=== PATIENT | male | born 1990 | race Asian ===

== ENCOUNTER 2024-04-08 09:14 | Inpatient (IN) | payer MEDICAID, SELFPAY ==
[2024-04-08 09:16] VITALS: BMI 23.7
[2024-04-08 09:29] VITALS: BP 126/75; PULSE 68; RESP 16; TEMP 36.8; O2SAT 100; BMI 23.7
--- NOTE | 2024-04-08 09:38 | PD.EDRME ---
Rapid Medical Screening Exam RME Arrival date/time: 04/08/24 09:14 33-year-old male presents emergency department complains of nausea vomiting abdominal pain patient reports vomiting for 3 days Chief Complaint: Abdominal Pain Time Seen by Provider: 04/08/24 09:16 Vital signs: Vital Signs Temperature 98.3 F 04/08/24 09:29 Pulse Rate 68 04/08/24 09:29 Respiratory Rate 16 04/08/24 09:29 Blood Pressure 126/75 04/08/24 09:29 Pulse Oximetry (%) 100 04/08/24 09:29 Oxygen Delivery Method Room Air 04/08/24 09:29
[2024-04-08] MEDS: ONDANSETRON ODT 4 MG TABRAP PO (09:49)
[2024-04-08] MEDS: METOCLOPRAMIDE INJ 5 MG/ML VIAL 2 ML 10 MG IM (09:49)
[2024-04-08 10:24] LABS: Basophils % (Auto) 0 % (0-2.5); Eosinophils % (Auto) 0 % (0-10); Hematocrit 43.6 % (41.0-53.0); Hemoglobin 15.7 g/dL (13.5-16.0); Immature Granulocytes % (Auto) 0 % (0-0); Immature Granulocytes Auto 0.03 Thou/mm3 (0.00-0.00); Lymphocytes # (Auto) 2.3 Thou/mm3 (1.0-4.8); Lymphocytes % (Auto) 21 % (10-50); Mean Corpuscular Volume 78 fL (80-100); Monocytes # (Auto) 0.9 Thou/mm3 (0.0-0.8); Monocytes % (Auto) 8 % (0-12); Neutrophils # (Auto) 7.6 Thou/mm3 (1.8-7.7); Neutrophils % (Auto) 70 % (37-80); Nucleated Red Blood Cell % 0 /100 WBC (0); Platelet Count 277 Thou/mm3 (140-440); RDW Standard Deviation 33.4 fL (35.1-43.9); White Blood Count 10.9 Thou/mm3 (3.8-10.6)
[2024-04-08 10:42] LABS: Alanine Aminotransferase 20 U/L (10-49); Albumin, Serum 5.5 gm/dL (3.5-5.0); Albumin/Globulin Ratio 1.8 (1.2-2.2); Alkaline Phosphatase 89 U/L (46-116); Anion Gap 18 (7-16); Aspartate Amino Transferase 23 U/L (0-34); BUN/Creatinine Ratio 14 Ratio (12-20); Bilirubin,Total 1.8 mg/dL (0.3-1.2); Blood Urea Nitrogen 17 mg/dL (9-23); Calcium 10.6 mg/dL (8.3-10.6); Calcium (Corrected) 10.6 mg/dL (8.5-10.1); Carbon Dioxide 21.4 mMol/L (20.0-31.0); Chloride 100 mMol/L (98-107); Creatinine (Component) 1.2 mg/dL (0.6-1.3); Globulin 3.1 gm/dL (2.3-3.5); Glucose 80 mg/dL (74-106); Lipase 51 U/L (12-53); Osmolality,Calculated 278 (275-295); Sodium 139 mMol/L (136-145); Total Protein 8.6 gm/dL (5.7-8.2); eGFR > 60 See Note
[2024-04-08 16:38] VITALS: BP 121/77; PULSE 74; RESP 20; TEMP 36.6; O2SAT 100
[2024-04-08] MEDS: KETOROLAC INJ 30 MG/ML VIAL IM (17:08)
[2024-04-08 19:21] VITALS: BP 129/82; PULSE 69; RESP 20; TEMP 36.4; O2SAT 99
--- NOTE | 2024-04-08 19:34 | XR_ITS ---
Examination: Abdomen sonogram, Limited Date and time of exam: April 08, 2024 2035 hrs. Indications: Abdominal pain beginning 2 days ago, elevated total bilirubin on laboratory examination today Technique: Real-time dejesus scale transabdominal sonographic images of the upper abdomen obtained. Findings: Normal gallbladder Normal common bile duct 0.4 cm Pancreatic head 1.4 cm Liver 15.2 cm no focal liver lesions Normal hepatopedal portal venous flow Patent IVC Impression: Normal gallbladder No common bile duct stones noted If biliary colic is a clinical consideration, suggest MRCP follow-up
--- NOTE | 2024-04-08 21:14 | EDNOTE_ITS ---
ED Abdominal Pain RME/HPI General Chief Complaint: Abdominal Pain Stated complaint: ABD. PAIN WITH NAUSEA AND VOMITING X3 DAYS Time seen by provider: 04/08/24 09:16 Arrival date/time: 04/08/24 09:14 Limitations: no limitations RME / HPI RME / HPI narrative: 04/08/24 09:14 33-year-old male presents emergency department complains of nausea vomiting abdominal pain patient reports vomiting for [address] ROJAS MAIN ED EVALUATION: 33 year old male with no chronic diseases presents to the Emergency Department with complaint of abdominal pain onset 2 days. Pain is constant, described as burning, sharp, and rated mild to moderate in severity. He states that he has associated nausea and vomiting. He states that 2 years ago, he was seen at the [facility] and states he was discharged with an ulcer. At this time he has similar pain to today that was in the epigastric area and went up to the throat; he states that at that time he got medications and they helped and would like the same treatment. Related Data Previous Rx's ?Medication ?Instructions ?Recorded famotidine 20 mg tablet (Pepcid) 20 mg PO BID #60 tabs 04/08/24 ondansetron 4 mg disintegrating 4 mg PO Q8H PRN nausea and 04/08/24 tablet vomiting #30 tabs Allergies Allergy/AdvReac Type Severity Reaction Status Date / Time No Known Allergies Allergy Verified 04/08/24 09:18 Review of Systems Review of Systems Systems Reviewed: All systems reviewed, normal except as documented Narrative Review of Systems: GEN: No fever, no chills, no weight loss EYES: No discharge, no visual changes, no pain HEENT: No ear pain, no congestion, no sore throat PULM: No shortness of breath, no cough, no congestion CV: No chest pain, no dyspnea on exertion, no palpitations GI: + nausea, + vomiting, no diarrhea, + abdominal pain, no constipation : No frequency, no urgency and no dysuria MUSC/SKEL: No joint pain, no back pain SKIN: No rash PSYCH: No hallucinations, no depression HEME/LYMPH: No easy bleeding or bruising tendencies NEURO: No weakness, no headache Past Medical History Social History SMOKING STATUS: Never smoker SUBSTANCE USE: does not use ALCOHOL: Never ED Exam General Limitations: Present no limitations General appearance: Present alert and in no apparent distress Head Head exam: Present atraumatic, normocephalic and normal inspection Eye Eye exam: Present normal appearance, PERRL and EOMI ENT ENT exam: Present normal exam, normal oropharynx and mucous membranes moist Neck Neck exam: Present normal inspection, full ROM and trachea midline Chest Chest inspection: Present normal inspection and symmetric chest wall rise Respiratory Respiratory exam: Present normal lung sounds bilaterally Cardiovascular Cardiovascular exam: Present regular rate, normal rhythm and normal heart sounds Abdominal Exam Abdominal exam: Present soft and normal bowel sounds Extremities Exam Extremities exam: Present normal inspection and full ROM Back Exam Back exam: Present normal inspection and full ROM Neurological Exam Neurological exam: Present alert, oriented X3 and CN II-XII intact Psychiatric Psychiatric exam: Present normal affect and normal mood Skin Skin exam: Present warm, dry, intact and normal color Course Course Course Narrative: [id number]: The nurse came back and informed me that the patient is vomiting. CT chest abdomen pelvis ordered. Quality Measures none Orders Category Date Time Status CT Screening NOW Care 04/08/24 23:[address] chest abdomen pelvis w Stat Exams 04/08/24 23:28 Taken US gall bladder Stat Exams 04/08/24 19:34 Completed CBC Stat Lab 04/08/24 09:55 Completed Comprehensive Metabolic Panel Stat Lab 04/08/24 09:55 Completed Drug Screen,Urine Stat Lab 04/09/24 00:53 Received Lipase Stat Lab 04/08/24 09:55 Completed UA, C/S IF [Urinalysis, C/S if Indicated] Stat Lab 04/09/24 00:53 Received Famotidine Inj [Pepcid Inj] Med 04/08/24 22:34 Discontinued 20 mg IVP X1 ONE HYDROcodone*/APAP 5/325 [Champion 5/325] Med 04/08/24 09:39 Discontinued 1 tab PO X1 ONE Ketorolac Inj [Toradol Inj] Med 04/08/24 16:58 Discontinued 30 mg IM X1 ONE Metoclopramide Inj [Reglan Inj] Med 04/08/24 09:38 Discontinued 10 mg IM X1 ONE Morphine Inj Med 04/08/24 23:46 Discontinued 4 mg IVP X1 ONE Ondansetron Inj [Zofran Inj] Med 04/08/24 22:34 Discontinued 4 mg IV X1 ONE Ondansetron Odt [Zofran Odt] Med 04/08/24 09:38 Discontinued 4 mg PO X1 ONE Sodium Chloride 0.9% 1000 ml [Ns] 1,000 ml Med 04/08/24 21:46 Discontinued IV 999 mls/hr Reevaluation(s) Reevaluation #1: Patient states he feels significantly better and feels comfortable going home. He does not want a CT abdomen at this time. Time: 23:00 Reevaluation #2: Patient still appears uncomfortable and has dry mucous membranes. He is agreeable to be admitted. Time: 01:25 Vital Signs Vital signs: Vital Signs Temperature 98.3 F 04/08/24 09:29 Pulse Rate 68 04/08/24 09:29 Respiratory Rate 16 04/08/24 09:29 Blood Pressure 126/75 04/08/24 09:29 Pulse Oximetry (%) 100 04/08/24 09:29 Oxygen Delivery Method Room Air 04/08/24 09:29 Abdominal Pain MDM MDM Narrative MDM Narrative:: ISana am scribing for and in the presence of Dr. Rojas. Patient data External records reviewed:: None (no previous visits) Clinical information provided by:: patient Social determinants that could affect healthcare access:: none Patient has the following chronic illnesses:: Denies any PMHx, surgeries, daily medications, or known allergies. How is presenting disease/condition affected by chronic disease/condition?: no chronic disease Evaluation data The following diagnostics were reviewed and interpreted by me:: lab results and radiology exam(s) Lab and/or radiology exams considered but not ordered:: none Interpretation Summary: Procedure(s): US gall bladder Accession Number(s): [id number] cc: Ricki Harley MD; NO PRIMARY/FAMILY,PHYSICIAN; Ella Rojas MD~ Examination: Abdomen sonogram, Limited Date and time of exam: April 08, 20242034 hrs. Indications: Abdominal pain beginning 2 days ago, elevated total bilirubin on laboratory examination today Technique: Real-time dejesus scale transabdominal sonographic images of the upper abdomen obtained. Findings: Normal gallbladder Normal common bile duct 0.4 cm Pancreatic head 1.4 cm Liver 15.2 cm no focal liver lesions Normal hepatopedal portal venous flow Patent IVC Impression: Normal gallbladder No common bile duct stones noted If biliary colic is a clinical consideration, suggest MRCP follow-up Dictated By: Ricki Harley MD Telerad Preliminary Report Draft Patient: SAADIA ALBARRAN [facility]. Record#: [id number] Birthdate: 1990 Age/Sex: 33 / M Location: [facility] Attending Dr: Ordering Physician: Date of Service: Procedure(s): Accession Number(s): cc: ~ CT scan of the chest, abdomen and pelvis with intravenous contrast (axial sections with sagittal and coronal reformats) April 08, 2024 2355 hours Clinical History: Epigastric abdomen pain. Weight loss Comparison: None. Findings: The lungs are clear. There is no pleural effusion or pneumothorax. The aorta is unremarkable without evidence of dissection or aneurysm. No evidence of mediastinal mass or lymphadenopathy. There is no pericardial effusion. The gallbladder, spleen, pancreas, adrenals and kidneys are unremarkable. Steatosis. Few colonic diverticula noted. No evidence of bowel obstruction. The appendix is within normal limits. Mild thickening of the descending colon wall associated with mild peripheral fat stranding. The urinary bladder is unremarkable. There is no free fluid or air. The osseous structures are unremarkable. Impression: Descending colon findings are compatible with mild to moderate colitis versus diverticulitis. Report Electronically Signed By: Qasim Maloney 04/09/2024 12:52:54 AM [EST] Medications / Prescriptions Medications or Prescriptions considered but not ordered:: none Medication administrations:: Medication Administration History Discontinued Medications Hydrocodone Bitart/Acetaminophen (Hydrocodone/Apap 5/325 Tablet) 1 tab PO X1 ONE Stop: 04/08/24 09:40 Last Admin: 04/08/24 09:52 Dose: Not Given Documented By: DO Non-Admin Reason: Patient Refused Famotidine (Famotidine Inj 10 Mg/Ml Vial 2 Ml) 20 mg IVP X1 ONE Stop: 04/08/24 22:35 Last Admin: 04/08/24 23:01 Dose: 20 mg Documented By: SF Sodium Chloride (Ns) 1,000 mls @ 999 mls/hr IV .Q1H1M ONE Stop: 04/08/24 22:46 Last Infusion: 04/08/24 23:11 Dose: Infused Documented By: Admin: 04/08/24 22:00 Dose: 999 mls/hr Documented By: Ketorolac Tromethamine (Ketorolac Inj 30 Mg/Ml Vial) 30 mg IM X1 ONE Stop: 04/08/24 16:59 Last Admin: 04/08/24 17:08 Dose: 30 mg Documented By: DB Metoclopramide HCl (Metoclopramide Inj 5 Mg/Ml Vial 2 Ml) 10 mg IM X1 ONE; Protocol Stop: 04/08/24 09:39 Last Admin: 04/08/24 09:49 Dose: 10 mg Documented By: VG Morphine Sulfate (Morphine Sulf Inj 10 Mg/Ml Vial) 4 mg IVP X1 ONE Stop: 04/08/24 23:47 Last Admin: 04/09/24 00:25 Dose: 4 mg Documented By: SF Ondansetron HCl (Ondansetron Odt 4 Mg Tabrap) 4 mg PO X1 ONE; Protocol Stop: 04/08/24 09:39 Last Admin: 04/08/24 09:49 Dose: 4 mg Documented By: VG Ondansetron HCl (Ondansetron Inj 2 Mg/Ml Inj 2 Ml) 4 mg IV X1 ONE; Protocol Stop: 04/08/24 22:35 Last Admin: 04/08/24 23:01 Dose: 4 mg Documented By: OSMEL see above Consultations Consultation(s) initiated? (list below): Yes Consultation #1 (Physician, Specialty, Details): Discussed case with [Dr. Hernandez] from Hospitalist service regarding admission. Discussed patients ED course, exam findings, labs, and radiology results. The Hospitalist [agrees] to accept the patient for admission. Time: 01:19 Diagnosis Differential diagnosis abdominal pain: pancreatitis and other (gallstones, dehydration, ulcers) Most likely diagnosis given after review of the tests above:: Ulcer Admission Indicated Admission indicated?: indicated Admission Request Was there a request for admission?: Yes Admission Attestation Admission request attestation: Discussed case with [] from Hospitalist service regarding admission. Discussed patients ED course, exam findings, labs, and radiology results. The Hospitalist [agrees,declines] to accept the patient for admission. Disposition Plan Disposition Plan: Admit Discharge Plan Plan Patient Disposition: HOME (Self Care) Patient condition on transfer: Stable Prescriptions/Referrals Prescriptions/Med Rec: New famotidine [Pepcid] 20 mg tablet 20 mg PO BID Qty: 60 1RF ondansetron 4 mg tablet,disintegrating 4 mg PO Q8H PRN (Reason: nausea and vomiting) Qty: 30 0RF Referrals: No Primary/Family,Physician [Primary Care Provider] - In 1 week Problem List Clinical Impression: Abdominal pain Patient/Caregiver Discharge Instructions Additional Instructions: Please take the medications as prescribed. Follow-up with your primary care ph ysician. If you do not have a primary care physician you can follow-up At the [facility], [address], [address] floor [place] [phone] Hours: Sunday - Sunday, 8 AM - 4:30 PM (Closed 12 PM - 1 PM) Contact Us: Print Language: Serbian Stand Alone Forms: Jennifer Award Info., Patient Portal Info Letter
[2024-04-08] MEDS: SODIUM CHLORIDE 0.9% 1000 ML 1,000 ML 999 ML IV (22:00)
[2024-04-08] MEDS: ONDANSETRON INJ 2 MG/ML INJ 2 ML 4 MG IV (23:01)
[2024-04-08] MEDS: FAMOTIDINE INJ 10 MG/ML VIAL 2 ML 20 MG IVP (23:01)
--- NOTE | 2024-04-08 23:28 | XR_ITS ---
Examination: CT chest with intravenous contrast CT abdomen with intravenous contrast CT pelvis with intravenous contrast 2-D coronal and sagittal reconstructions Time of exam: April 08, 2024 11:57 PM Indications: Epigastric pain nausea vomiting fever and chills beginning 3 days ago CTDI: vol (mGy) : 8.51 DLP: (mGycm): 603 Technique: Multiple axial images of the chest, abdomen and pelvis with intravenous contrast, 3.0 mm slice thickness. Images obtained post intravenous injection Isovue 370 60 cc. 2-D sagittal and coronal reconstructions. Low dose protocols were performed. One or more of the following dose reduction techniques were used; automated exposure control, adjustment of the mA and/or KV according to patient size, use of iterative reconstruction technique. Findings: No thoracic aortic aneurysmal dilatation No pulmonary artery aneurysmal dilatation Calcified granuloma in the right upper lobe No pneumonia or pulmonary edema or pleural disease Gastric mucosa in the fundal region appears thickened No focal liver or splenic lesion Contracted gallbladder No pancreatic or adrenal mass No renal or ureteral calculi, no renal edema Aorta normal size No bowel obstruction Normal appendix There is minimal wall thickening involving the descending colon Impression: No pneumonia or pulmonary edema or pleural disease Gastritis pattern Suspicious for minimal nonspecific colitis descending colon
[2024-04-09] VITALS (8 sets, daily range): BP systolic 110–142; BP diastolic 61–75; PULSE 60–89; RESP 15–18; TEMP 36.5–36.9; O2SAT 95–99; BMI 23.7; BMI 24.8
[2024-04-09] MEDS: MORPHINE SULF INJ 10 MG/ML VIAL 4 MG IVP (00:25)
--- NOTE | 2024-04-09 00:53 | PRELIM_ITS ---
CT scan of the chest, abdomen and pelvis with intravenous contrast (axial sections with sagittal and coronal reformats) April 08, 2024 2355 hours Clinical History: Epigastric abdomen pain. Weight loss Comparison: None.Findings:The lungs are clear. There is no pleural effusion or pneumothorax. The aor ta is unremarkable without evidence of dissection or aneurysm. No evidence of mediastinal mass or lym phadenopathy. There is no pericardial effusion.The gallbladder, spleen, pancreas, adrenals and kidney s are unremarkable.Steatosis.Few colonic diverticula noted.No evidence of bowel obstruction. The appe ndix is within normal limits.Mild thickening of the descending colon wall associated with mild periph eral fat stranding.The urinary bladder is unremarkable. There is no free fluid or air.The osseous str uctures are unremarkable.Impression:Descending colon findings are compatible with mild to moderate co litis versus diverticulitis. Report Electronically Signed By: Qasim Maloney 04/09/2024 12:52:54 AM [EST]
[2024-04-09 01:12] LABS: Collection Type, Urine Clean Catch
--- NOTE | 2024-04-09 01:34 | EKG_ITS ---
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
[2024-04-09] MEDS: SODIUM CHLORIDE 0.9% 1000 ML 1,000 ML 999 ML IV (01:38)
--- NOTE | 2024-04-09 01:58 | PD.EVENT ---
Documentation for date of: 04/09/24 Event Note Event Note: A 33-year-old male presented to the ER with the chief complaint of abdominal pain. The patient reports that the abdominal pain began two days prior to presentation. He describes the pain as constant, burning, and sharp, with mild to moderate severity. He also reports associated nausea and vomiting but denies diarrhea. He recalls consuming a meal at a restaurant shortly before the onset of symptoms and suspects food poisoning. The patient mentions passing black stools two days ago and possibly having a fever on the same day. He denies a prior history of similar symptoms except for an ulcer diagnosed three years ago at [facility], at which time he experienced similar epigastric pain radiating to the throat. The prior condition reportedly resolved with medication. The patient has no known chronic medical conditions and denies hypertension, diabetes, or other significant illnesses. He has no surgical history and is not taking any medications. He denies smoking, alcohol use, or drug use. However, urine toxicology was positive for marijuana. His family history is notable for diabetes in his father. The patient is otherwise reportedly healthy and independent in his daily activities. In the Emergency Department, vital signs were recorded as: temperature 98.3?F, heart rate 68 bpm, respiratory rate 16 bpm, and blood pressure 126/75 mmHg. Laboratory results revealed a white blood cell count of 10.9, hemoglobin initially at 15.7, later dropping to 12.9, platelets 277, and total bilirubin of 1.8. Imaging with a CT scan of the chest, abdomen, and pelvis showed findings in the descending colon consistent with mild to moderate colitis versus diverticulitis. The patient?s course in the ER has lasted 16 hours, during which management included administration of ondansetron, metoclopramide, norco, ketorolac, famotidine, and morphine; however, these interventions did not alleviate his symptoms. A gastroenterology consultation is planned for further evaluation, potentially including an endoscopy.
[2024-04-09 02:05] LABS: Lactate (Lactic Acid) 1.2 mMol/L (0.4-2.0)
[2024-04-09 02:24] LABS: Basophils % (Auto) 0 % (0-2.5); Eosinophils # (Auto) 0.1 Thou/mm3 (0.0-0.5); Eosinophils % (Auto) 1 % (0-10); Hematocrit 36.4 % (41.0-53.0); Hemoglobin 12.9 g/dL (13.5-16.0); Immature Granulocytes % (Auto) 0 % (0-0); Immature Granulocytes Auto 0.02 Thou/mm3 (0.00-0.00); Lymphocytes # (Auto) 2.6 Thou/mm3 (1.0-4.8); Lymphocytes % (Auto) 27 % (10-50); Mean Corpuscular HGB Conc 35.4 g/dl (31.0-37.0); Mean Corpuscular Hemoglobin 28.1 pg (25.0-35.0); Mean Corpuscular Volume 79 fL (80-100); Monocytes # (Auto) 0.8 Thou/mm3 (0.0-0.8); Monocytes % (Auto) 8 % (0-12); Neutrophils # (Auto) 6.1 Thou/mm3 (1.8-7.7); Neutrophils % (Auto) 64 % (37-80); Nucleated Red Blood Cell % 0 /100 WBC (0); Platelet Count 223 Thou/mm3 (140-440); RDW Standard Deviation 34.8 fL (35.1-43.9); Red Blood Count 4.59 Miln/mm3 (4.50-5.90); White Blood Count 9.5 Thou/mm3 (3.8-10.6)
[2024-04-09] MEDS: SODIUM CHLORIDE 0.9% 1000 ML 1,000 ML 125 ML IV ×3 (02:25→17:05)
[2024-04-09 02:29] LABS: Amphetamine/Methamp Scrn,U Negative (Negative); Barbiturate Screen,Urine Negative (Negative); Benzodiazepines Screen,Urine Negative (Negative); Benzoylecgonine Screen, Ur Negative (Negative); Bilirubin,Urine 1+ (Negative); Blood,Urine Negative (Negative); Clarity,Urine Clear (Clear/Hazy); Color,Urine Yellow (Lt Yel-Yel); Culture Indicated,Urine Not Indicated; Fentanyl Screen,Urine Negative (Negative); Glucose, Urine Negative (Negative); Ketones,Urine 3+ (Negative); Leukocyte Esterase,Urine Negative (Negative); Nitrite,Urine Negative (Negative); Opiate Screen,Urine Positive (Negative); PH,Urine 6.5 (5.0-7.0); Protein,Urine 1+ (Neg - Trace); RBC,Urine 6 /hpf (0-3); Squamous Epithelial Cell,Urine < 1 /hpf (0-5); THC Screen,Urine Positive (Negative); WBC,Urine 2 /hpf (0-5)
[2024-04-09 02:30] LABS: Specific Gravity,Urine 1.035 (1.001-1.035)
[2024-04-09 02:46] LABS: Alanine Aminotransferase 17 U/L (10-49); Albumin/Globulin Ratio 1.7 (1.2-2.2); Alkaline Phosphatase 67 U/L (46-116); Anion Gap 14 (7-16); Aspartate Amino Transferase 18 U/L (0-34); BUN/Creatinine Ratio 21 Ratio (12-20); Bilirubin,Total 1.4 mg/dL (0.3-1.2); Blood Urea Nitrogen 21 mg/dL (9-23); Calcium 9.1 mg/dL (8.3-10.6); Calcium (Corrected) 9.1 mg/dL (8.5-10.1); Carbon Dioxide 20.8 mMol/L (20.0-31.0); Chloride 107 mMol/L (98-107); Creatine Kinase 152 U/L (34-171); Globulin 2.4 gm/dL (2.3-3.5); Glucose 82 mg/dL (74-106); Osmolality,Calculated 285 (275-295); Potassium 3.8 mMol/L (3.4-5.1); Procalcitonin < 0.04 ng/ml (0.0-0.49); Sodium 142 mMol/L (136-145); Total Protein 6.4 gm/dL (5.7-8.2); eGFR > 60 See Note
--- NOTE | 2024-04-09 03:04 | PD.RESHP ---
Documentation for date of: 04/09/24 [facility] History of Present Illness Chief complaint: Vomitings and abdominal pain History of present illness: 33-year-old male with no significant past medical history presented to the hospital with chief complaints of abdominal pain and vomiting since 3 days. Patient was apparently normal 3 days ago, he had a meal in the restaurant with his mom and since then he started having vomitings. But the mother did not have any similar complaints. Vomitings are 5-6 and episodes lasted for 3 days not associated with any blood, bilious in nature and patient was not able to eat or drink anything during those 3 days. Endorse that he had a bowel movement with specks of blackish discoloration 3 days ago and did not have any similar complaints later. Vomitings are associated with abdominal pain mainly in the epigastric area, burning type and reported that it relieves with vomiting. Denies fever, abdominal distention, diarrhea, chest pain, shortness of breath. ED Course: -Initial vitals were stable -Labs significant for WBC 10.9, Hb 15.7, total bilirubin 1.8, rest of the labs are within normal limits. Urine analysis showed 1+ proteinuria, 3+ ketones, 1+ bilirubin, 6 RBC with no bacteria. Urine toxicology tested positive for opiates and marijuana. -CT chest/abdomen/pelvis done showed colitis versus diverticulitis picture . Gallbladder ultrasound did not show any significant pathology. -In the ED, patient was given morphine, hydrocodone, famotidine, ondansetron, pantoprazole, IV fluids -Patient was admitted for acute gastroenteritis Past medical history: Not significant Past surgical history: Not significant Social history: Patient denied smoking, alcohol, other drug abuse but urine toxicology tested positive for marijuana Review of Systems Review of Systems Systems Reviewed: All systems reviewed, normal except as documented Exam Vital Signs Temp Pulse Resp BP Pulse Ox O2 Del Method 98.4 F 72 18 142/61 H 99 Room Air 04/09/24 01:37 04/09/24 01:37 04/09/24 01:37 04/09/24 01:37 04/09/24 01:37 04/09/24 01:37 Narrative Exam General: Awake. HEENT: Normocephalic, atraumatic, mucous membranes moist. Heart: Regular rate and rhythm, no murmurs. Lungs: Clear to auscultation with no wheezing or crackles. Abdomen: Soft, nondistended, nontender, positive bowel sounds. ?No guarding or rebound tenderness. Neurologic: Alert and oriented x3, no gross neurological deficit, and patient able to move all 4 extremities. Extremities: No edema. Skin: No rash or ecchymoses. Results: Labs 04/09/24 04:25 04/09/24 01:40 Labs: Short CBC 04/08/24 04/09/24 Range/Units 09:55 01:40 WBC 10.9 H 9.5 (3.8-10.6) Thou/mm3 Hgb 15.7 12.9 L D (13.5-16.0) g/dL Hct 43.6 36.4 L (41.0-53.0) % Plt Count 277 223 D (140-440) Thou/mm3 BMP 04/08/24 04/09/24 09:55 01:40 Sodium 139 142 Potassium 4.0 3.8 Chloride 100 107 Carbon Dioxide 21.4 20.8 BUN 17 21 Creatinine 1.2 1.0 Glucose 80 82 Calcium 10.6 9.1 D Cardiac Enzymes 04/09/24 Range/Units 01:40 Total Creatine Kinase 152 (34-171) U/L Liver Function 04/08/24 04/09/24 Range/Units 09:55 01:40 Total Bilirubin 1.8 H 1.4 H (0.3-1.2) mg/dL AST 23 18 (0-34) U/L ALT 20 17 (10-49) U/L Alkaline Phosphatase 89 67 D (46-116) U/L Albumin 5.5 H 4.0 D (3.5-5.0) gm/dL Urine 04/09/24 Range/Units 00:53 Urine Color Yellow (Lt Yel-Yel) Urine Clarity Clear (Clear/Hazy) Urine pH 6.5 (5.0-7.0) Ur Specific [place] 1.035 (1.001-1.035) Urine Protein 1+ A (Neg - Trace) Urine Glucose (UA) Negative (Negative) Quality Measures Quality Measures none Medications Home Medications and Allergies Allergies Allergy/AdvReac Type Severity Reaction Status Date / Time No Known Allergies Allergy Verified 04/08/24 09:18 Visit Medications Sodium Chloride (Ns) 1,000 mls @ 125 mls/hr IV .Q8H GENEVIEVE Stop: 05/09/24 01:59 Pantoprazole Sodium (Protonix/Ns 80mg Iv Premix) 80 mg in 100 mls @ 10 mls/hr IV Q10H [facility] Stop: 04/12/24 00:42 Morphine Sulfate (Morphine Sulf Inj 10 Mg/Ml Vial) 2 mg IVP Q2H PRN PRN Reason: PAIN SCALE 7-10 (Severe Stop: 04/14/24 01:47 Ondansetron HCl (Ondansetron Inj 2 Mg/Ml Inj 2 Ml) 4 mg IV Q6HR PRN; Protocol PRN Reason: NAUSEA OR VOMITING Stop: 05/09/24 01:49 Discontinued Medications Hydrocodone Bitart/Acetaminophen (Hydrocodone/Apap 5/325 Tablet) 1 tab PO X1 ONE Stop: 04/08/24 09:40 Last Admin: 04/08/24 09:52 Dose: Not Given Famotidine (Famotidine Inj 10 Mg/Ml Vial 2 Ml) 20 mg IVP X1 ONE Stop: 04/08/24 22:35 Last Admin: 04/08/24 23:01 Dose: 20 mg Sodium Chloride (Ns) 1,000 mls @ 999 mls/hr IV .Q1H1M ONE Stop: 04/08/24 22:46 Last Infusion: 04/08/24 23:11 Dose: Infused Sodium Chloride (Ns) 1,000 mls @ 999 mls/hr IV .Q1H1M ONE Stop: 04/09/24 02:25 Last Admin: 04/09/24 01:38 Dose: 999 mls/hr Ketorolac Tromethamine (Ketorolac Inj 30 Mg/Ml Vial) 30 mg IM X1 ONE Stop: 04/08/24 16:59 Last Admin: 04/08/24 17:08 Dose: 30 mg Metoclopramide HCl (Metoclopramide Inj 5 Mg/Ml Vial 2 Ml) 10 mg IM X1 ONE; Protocol Stop: 04/08/24 09:39 Last Admin: 04/08/24 09:49 Dose: 10 mg Morphine Sulfate (Morphine Sulf Inj 10 Mg/Ml Vial) 4 mg IVP X1 ONE Stop: 04/08/24 23:47 Last Admin: 04/09/24 00:25 Dose: 4 mg Ondansetron HCl (Ondansetron Odt 4 Mg Tabrap) 4 mg PO X1 ONE; Protocol Stop: 04/08/24 09:39 Last Admin: 04/08/24 09:49 Dose: 4 mg Ondansetron HCl (Ondansetron Inj 2 Mg/Ml Inj 2 Ml) 4 mg IV X1 ONE; Protocol Stop: 04/08/24 22:35 Last Admin: 04/08/24 23:01 Dose: 4 mg Pantoprazole Sodium (Pantoprazole Inj 40 Mg Vial) 40 mg IVP QDAY [facility] Stop: 05/09/24 08:59 Assessment & Plan Plan 33-year-old male with no significant past medical history presented to the hospital with chief complaints of abdominal pain and vomiting since 3 days and admitted in the hospital for acute gastroenteritis # Vomitings # Likely secondary to acute gastroenteritis -Patient admitted with the complaints of vomiting since 3 days after eating outside in a restaurant -Denies similar complaints in the mom who had lunch in the same restaurant -Associated with abdominal pain which is burning type and relieved with vomiting. -Patient denies blood in vomitings or stools. Decreased oral intake during this 3 days. -Labs at the time of admission showed WBC 10.9, Hb 15.7 -Abdominal examination remained unremarkable -CT abdomen/pelvis showed colitis versus diverticulitis in descending colon -Gallbladder ultrasound did not show any pathology Plan -Patient received 2 L of NS in the ED -Started on IV fluid, NS at 125 mL/h -Started on pantoprazole drip 80 Mg at 10 mL/h -Gastroenterology consult if needed # Anemia # Likely dilutional -Per chart review, patient had history of ulcer -but patient denied endoscopy procedure at that time -Patient's hemoglobin at the time of presentation to the ED is 15.7, after receiving 2 L of NS hemoglobin dropped to 12.9 -Initial hemoglobin of 15.7 could be due to hemoconcentration due to dehydration and later hemoglobin could be due to dilution to due to NS -As all the 3 lineages dropped was found on CBC -Patient did not have any complaints of bloody vomitings or bloody stools -Only had episode of blackish discoloration of his stool where he noted dots of black color in his stools -Continue to monitor CBC. Hospital Maintenance: Dispo: Tele DVT ppx: not needed GI ppx: pantoprazole drip okay Diet: n.p.o IV lines: peripheral Code status: Full Patient plan of care was discussed with the attending physician, Dr. David Maldonado, PGY1 Attending Provider Attestation/Addendum Pt was evaluated and plan formulated together with the housestaff team. I have reviewed the residents note above and agree with most of its content. Please refer to the residents note for additional details.
[2024-04-09] MEDS: PANTOPRAZOLE/NS 80MG IV PREMIX 80 MG/100 ML BAG 10 MG IV ×3 (03:29→23:05)
[2024-04-09 05:27] LABS: Basophils % (Auto) 1 % (0-2.5); Eosinophils # (Auto) 0.1 Thou/mm3 (0.0-0.5); Eosinophils % (Auto) 1 % (0-10); Hematocrit 34.6 % (41.0-53.0); Hemoglobin 12.4 g/dL (13.5-16.0); Immature Granulocytes % (Auto) 0 % (0-0); Immature Granulocytes Auto 0.02 Thou/mm3 (0.00-0.00); Lymphocytes # (Auto) 2.8 Thou/mm3 (1.0-4.8); Lymphocytes % (Auto) 33 % (10-50); Mean Corpuscular HGB Conc 35.8 g/dl (31.0-37.0); Mean Corpuscular Hemoglobin 28.4 pg (25.0-35.0); Mean Corpuscular Volume 79 fL (80-100); Monocytes # (Auto) 0.7 Thou/mm3 (0.0-0.8); Monocytes % (Auto) 8 % (0-12); Neutrophils # (Auto) 4.9 Thou/mm3 (1.8-7.7); Neutrophils % (Auto) 57 % (37-80); Nucleated Red Blood Cell % 0 /100 WBC (0); Platelet Count 222 Thou/mm3 (140-440); Red Blood Count 4.36 Miln/mm3 (4.50-5.90); White Blood Count 8.5 Thou/mm3 (3.8-10.6)
[2024-04-09 06:24] LABS: Anion Gap 12 (7-16); BUN/Creatinine Ratio 18 Ratio (12-20); Blood Urea Nitrogen 18 mg/dL (9-23); Calcium 8.6 mg/dL (8.3-10.6); Carbon Dioxide 24.2 mMol/L (20.0-31.0); Chloride 106 mMol/L (98-107); Glucose 81 mg/dL (74-106); Osmolality,Calculated 284 (275-295); Potassium 3.6 mMol/L (3.4-5.1); Sodium 142 mMol/L (136-145); eGFR > 60 See Note
--- NOTE | 2024-04-09 07:10 | PC.NURSE ---
REPORT RECEIVED AT THIS TIME; PER REPORT, PT HERE WITH C/O ABD PAIN WITH N/V. THEY'RE ADMITTED TO MED/TELE FOR THE ABD PAIN; THEY'RE TRYING TO RULE OUT COLITIS VS. DIVERTICULITIS. CT OF ABD PENDING AT THIS TIME. PT CONNECTED TO MONITORS AT THIS TIME.
--- NOTE | 2024-04-09 08:39 | PD.RESPRO ---
Documentation for date of: 04/09/24 Exam Vital Signs Temp Pulse Resp BP Pulse Ox O2 Del Method 98.1 F 89 15 123/69 98 Room Air 04/09/24 07:13 04/09/24 07:13 04/09/24 07:13 04/09/24 07:13 04/09/24 07:13 04/09/24 07:13 Objective Labs 04/09/24 04:25 04/09/24 04:25 Labs: Laboratory Results - last 24 hr 04/08/24 04/09/24 04/09/24 09:55 00:53 01:40 WBC 10.9 H 9.5 RBC 5.60 4.59 Hgb 15.7 12.9 L D Hct 43.6 36.4 L MCV 78 L 79 L MCH 28.0 28.1 MCHC 36.0 35.4 RDW Std Deviation 33.4 L 34.8 L Plt Count 277 223 D Neut % (Auto) 70 64 Lymph % (Auto) 21 27 [place] % (Auto) 8 8 Eos % (Auto) 0 1 Baso % (Auto) 0 0 Neut # (Auto) 7.6 6.1 Lymph # (Auto) 2.3 2.6 [place] # (Auto) 0.9 H 0.8 Eos # (Auto) 0.0 0.1 Baso # (Auto) 0.0 0.0 Immature Gran # (Auto) 0.03 H 0.02 H Absolute Nucleated RBC 0.00 0.00 Immature Gran % 0 0 Nucleated RBC % 0 0 Sodium 139 142 Potassium 4.0 3.8 Chloride 100 107 Carbon Dioxide 21.4 20.8 Anion Gap 18 H 14 BUN 17 21 Creatinine 1.2 1.0 Estim Creat Clear Calc 95.0 114.0 eGFR > 60 > 60 BUN/Creatinine Ratio 14 21 H Glucose 80 82 Calculated Osmolality 278 285 Lactic Acid 1.2 Calcium 10.6 9.1 D Corrected Calcium 10.6 H 9.1 D Total Bilirubin 1.8 H 1.4 H AST 23 18 ALT 20 17 Alkaline Phosphatase 89 67 D Total Creatine Kinase 152 Total Protein 8.6 H 6.4 Albumin 5.5 H 4.0 D Globulin 3.1 2.4 Albumin/Globulin Ratio 1.8 1.7 Lipase 51 Procalcitonin < 0.04 Ur Collection Type Clean Catch Urine Color Yellow Urine Clarity Clear Urine pH 6.5 Ur Specific [place] 1.035 Urine Protein 1+ A Urine Glucose (UA) Negative Urine Ketones 3+ A Urine Blood Negative Urine Nitrite Negative Urine Bilirubin 1+ A Urine Urobilinogen (Auto) 2.0 Ur Leukocyte Esterase Negative Urine RBC 6 H Urine WBC 2 Ur Squamous Epith Cells < 1 Urine Bacteria None Ur Culture Indicated? Not Indicated Urine Opiates Screen Positive A Urine Fentanyl Screen Negative Ur Barbiturates Screen Negative U Amphetamin/Meth Scrn Negative U Benzodiazepines Scrn Negative U Cocaine Metab Screen Negative U Marijuana (THC) Screen Positive A 04/09/24 04:25 WBC 8.5 RBC 4.36 L Hgb 12.4 L Hct 34.6 L MCV 79 L MCH 28.4 MCHC 35.8 RDW Std Deviation 35.0 L Plt Count 222 Neut % (Auto) 57 Lymph % (Auto) 33 [place] % (Auto) 8 Eos % (Auto) 1 Baso % (Auto) 1 Neut # (Auto) 4.9 Lymph # (Auto) 2.8 [place] # (Auto) 0.7 Eos # (Auto) 0.1 Baso # (Auto) 0.0 Immature Gran # (Auto) 0.02 H Absolute Nucleated RBC 0.00 Immature Gran % 0 Nucleated RBC % 0 Sodium 142 Potassium 3.6 Chloride 106 Carbon Dioxide 24.2 Anion Gap 12 BUN 18 Creatinine 1.0 Estim Creat Clear Calc 114.0 eGFR > 60 BUN/Creatinine Ratio 18 Glucose 81 Calculated Osmolality 284 Lactic Acid Calcium 8.6 Corrected Calcium Total Bilirubin AST ALT Alkaline Phosphatase Total Creatine Kinase Total Protein Albumin Globulin Albumin/Globulin Ratio Lipase Procalcitonin Ur Collection Type Urine Color Urine Clarity Urine pH Ur Specific [place] Urine Protein Urine Glucose (UA) Urine Ketones Urine Blood Urine Nitrite Urine Bilirubin Urine Urobilinogen (Auto) Ur Leukocyte Esterase Urine RBC Urine WBC Ur Squamous Epith Cells Urine Bacteria Ur Culture Indicated? Urine Opiates Screen Urine Fentanyl Screen Ur Barbiturates Screen U Amphetamin/Meth Scrn U Benzodiazepines Scrn U Cocaine Metab Screen U Marijuana (THC) Screen Quality Measures Quality Measures none Assessment & Plan Assessment Current Active Medications: Generic Name Dose Route Start Last Admin Trade Name Freq PRN Reason Stop Dose Admin Sodium Chloride 1,000 mls @ 125 mls/hr 04/09/24 02:00 04/09/24 02:25 Ns IV 05/09/24 01:59 125 mls/hr .Q8H GENEVIEVE Administration Pantoprazole Sodium 80 mg in 100 mls @ 10 mls/hr 04/09/24 02:43 04/09/24 03:29 Protonix/Ns 80mg Iv Premix IV 04/09/24 12:42 10 mls/hr Q10H GENEVIEVE Administration Pantoprazole Sodium 80 mg in 100 mls @ 10 mls/hr 04/09/24 12:43 Protonix/Ns 80mg Iv Premix IV 04/12/24 00:42 Q10H GENEVIEVE Morphine Sulfate 2 mg 04/09/24 01:48 Morphine Sulf Inj 10 Mg/Ml Vial IVP 04/14/24 01:47 Q2H PRN PAIN SCALE 7-10 (Severe Ondansetron HCl 4 mg 04/09/24 01:50 Ondansetron Inj 2 Mg/Ml Inj 2 Ml IV 05/09/24 01:49 Q6HR PRN NAUSEA OR VOMITING Protocol Plan 33-year-old male with no significant past medical history presented to the hospital with chief complaints of abdominal pain and vomiting since 3 days. Patient was apparently normal 3 days ago, he had a meal in the restaurant with his mom and since then he started having vomitings. But the mother did not have any similar complaints. Vomitings are 5-6 and episodes lasted for 3 days not associated with any blood, bilious in nature and patient was not able to eat or drink anything during those 3 days. Endorse that he had a bowel movement with specks of blackish discoloration 3 days ago and did not have any similar complaints later. Vomitings are associated with abdominal pain mainly in the epigastric area, burning type and reported that it relieves with vomiting. Denies fever, abdominal distention, diarrhea, chest pain, shortness of breath. ED Course: -Initial vitals were stable -Labs significant for WBC 10.9, Hb 15.7, total bilirubin 1.8, rest of the labs are within normal limits. Urine analysis showed 1+ proteinuria, 3+ ketones, 1+ bilirubin, 6 RBC with no bacteria. Urine toxicology tested positive for opiates and marijuana. -CT chest/abdomen/pelvis done showed colitis versus diverticulitis picture . Gallbladder ultrasound did not show any significant pathology. -In the ED, patient was given morphine, hydrocodone, famotidine, ondansetron, pantoprazole, IV fluids -Patient was admitted for acute gastroenteritis
[2024-04-09] MEDS: ONDANSETRON INJ 2 MG/ML INJ 2 ML 4 MG IV (08:47)
[2024-04-09] MEDS: MORPHINE SULF INJ 10 MG/ML VIAL 2 MG IVP ×4 (08:51→23:04)
[2024-04-09 09:48] LABS: OBS Card Expiration Date 2026-09; OBS Card Lot # 23001; OBS Developer Expiration Date 2026-09; OBS Developer Lot # 23003; OBS Performed By MADRG3; OBS QC OK? Yes; Occult Blood, Stool Negative (Negative)
--- NOTE | 2024-04-09 11:37 | PC.NURSE ---
SPOKE TO DR RAGNEL IN REGARDS TO PATIENTS ADMISSION STATUS PER DR RANGEL PATIENT CAN BE DOWNGRADED TO MED TELE. ORDERS PLACED PER .
--- NOTE | 2024-04-09 16:41 | PD.IMCONS ---
HPI Data of Consult Requesting Physician: Agus Hernandez MD Primary Care Provider: Physician No Primary/Family Consult Narrative Reason for consult: Nausea vomiting pain abdomen History of present illness: 33 years old male came to the emergency room with 3-day history of nausea vomiting that started after eating in a restaurant Mother also at the same restaurant and she is healthy and no symptoms Gallbladder ultrasound in the ER was negative for any cholelithiasis CT scan of the abdomen and pelvis with contrast showed gastritis and nonspecific colitis pattern Because of the severity of the abdominal pain and symptom patient was subsequently admitted cc:: cc: Agus Hernandez MD Review of Systems Review of Systems Systems Reviewed: All systems reviewed, normal except as documented Meds Home Medications and Allergies Allergies Allergy/AdvReac Type Severity Reaction Status Date / Time No Known Allergies Allergy Verified 04/08/24 09:18 Exam Vital Signs Temp Pulse Resp BP Pulse Ox O2 Del Method 98.1 F 71 15 120/75 97 Room Air 04/09/24 10:30 04/09/24 16:00 04/09/24 10:30 04/09/24 10:30 04/09/24 10:30 04/09/24 10:30 Constitutional Comments: Alert and oriented Routine Respiratory Exam Comments: Normal to auscultation Routine Abdominal Exam Comments: Soft Results Labs 04/09/24 04:25 04/09/24 04:25 Labs: Short CBC 04/09/24 04/09/24 Range/Units 01:40 04:25 WBC 9.5 8.5 (3.8-10.6) Thou/mm3 Hgb 12.9 L D 12.4 L (13.5-16.0) g/dL Hct 36.4 L 34.6 L (41.0-53.0) % Plt Count 223 D 222 (140-440) Thou/mm3 BMP 04/09/24 04/09/24 01:40 04:25 Sodium 142 142 Potassium 3.8 3.6 Chloride 107 106 Carbon Dioxide 20.8 24.2 BUN 21 18 Creatinine 1.0 1.0 Glucose 82 81 Calcium 9.1 D 8.6 Cardiac Enzymes 04/09/24 Range/Units 01:40 Total Creatine Kinase 152 (34-171) U/L Liver Function 04/09/24 Range/Units 01:40 Total Bilirubin 1.4 H (0.3-1.2) mg/dL AST 18 (0-34) U/L ALT 17 (10-49) U/L Alkaline Phosphatase 67 D (46-116) U/L Albumin 4.0 D (3.5-5.0) gm/dL Urine 04/09/24 Range/Units 00:53 Urine Color Yellow (Lt Yel-Yel) Urine Clarity Clear (Clear/Hazy) Urine pH 6.5 (5.0-7.0) Ur Specific [place] 1.035 (1.001-1.035) Urine Protein 1+ A (Neg - Trace) Urine Glucose (UA) Negative (Negative) Assessment and Plan Additional Assessment & Plan Additional Plan: Clinical picture of nausea vomiting abdominal pain after eating at a restaurant suggestive of infectious gastroenteritis Severity of the abdominal pain is somewhat perplexing with CT scan of the abdomen pelvis showing gastritis and nonspecific colitis Plan Agree with pain control and IV fluids Anemia most likely is dilutional although patient had specks of black material in the stool may have a low-grade GI bleed Consent obtained for fiberoptic esophagogastroduodenoscopy with possible biopsy possible therapeutic intervention under intravenous moderate sedation Clear liquid diet till 10 AM tomorrow morning then n.p.o. Thank you very much for the opportunity to participate in the care of this patient
--- NOTE | 2024-04-09 17:29 | PC.NURSE ---
Dr. Mclean in to see pt
--- NOTE | 2024-04-09 18:06 | ESPR_ITS ---
<Statement entered by Catrachito Nichole MD - 04/15/24 12:09> I reviewed above note and agree with findings and plans. I have also personally examined the patient with medicine team and went over assessment and plan with medical team including marketing research intern and resident physician. Documentation for date of: 04/09/24 Subjective Subjective Interval history: The patient was interviewed and examined at the bedside this morning. He reported having dizziness, but denied any headache, SOB, chest pain, abdominal pain, any diarrhea or burning micturition. He denied any fever or chills. Exam Vital Signs Temp Pulse Resp BP Pulse Ox O2 Del Method 98.1 F 71 15 120/75 97 Room Air 04/09/24 10:30 04/09/24 16:00 04/09/24 10:30 04/09/24 10:30 04/09/24 10:30 04/09/24 10:30 Narrative Exam General: No acute distress, Alert and Oriented x 3 HEENT: Moist mucous membranes, oropharynx clear Neck: Supple, No masses, No JVD CVS: S1S2 Regular rate and rhythm, No murmurs, rubs or gallops Lungs: Clear to auscultation with no accessory use, no wheeze no rhonchi Abd: Soft, NT/ND, +BS, no organomegaly Ext: No edema, warm and well perfused Skin: No rash Psych: Appropriate mood and affect Objective Labs 04/09/24 04:25 04/09/24 04:25 Labs: Laboratory Results - last 24 hr 04/09/24 04/09/24 04/09/24 00:53 01:40 04:25 WBC 9.5 8.5 RBC 4.59 4.36 L Hgb 12.9 L D 12.4 L Hct 36.4 L 34.6 L MCV 79 L 79 L MCH 28.1 28.4 MCHC 35.4 35.8 RDW Std Deviation 34.8 L 35.0 L Plt Count 223 D 222 Neut % (Auto) 64 57 Lymph % (Auto) 27 33 [place] % (Auto) 8 8 Eos % (Auto) 1 1 Baso % (Auto) 0 1 Neut # (Auto) 6.1 4.9 Lymph # (Auto) 2.6 2.8 [place] # (Auto) 0.8 0.7 Eos # (Auto) 0.1 0.1 Baso # (Auto) 0.0 0.0 Immature Gran # (Auto) 0.02 H 0.02 H Absolute Nucleated RBC 0.00 0.00 Immature Gran % 0 0 Nucleated RBC % 0 0 Sodium 142 142 Potassium 3.8 3.6 Chloride 107 106 Carbon Dioxide 20.8 24.2 Anion Gap 14 12 BUN 21 18 Creatinine 1.0 1.0 Estim Creat Clear Calc 114.0 114.0 eGFR > 60 > 60 BUN/Creatinine Ratio 21 H 18 Glucose 82 81 Calculated Osmolality 285 284 Lactic Acid 1.2 Calcium 9.1 D 8.6 Corrected Calcium 9.1 D Total Bilirubin 1.4 H AST 18 ALT 17 Alkaline Phosphatase 67 D Total Creatine Kinase 152 Total Protein 6.4 Albumin 4.0 D Globulin 2.4 Albumin/Globulin Ratio 1.7 Procalcitonin < 0.04 Ur Collection Type Clean Catch Urine Color Yellow Urine Clarity Clear Urine pH 6.5 Ur Specific [place] 1.035 Urine Protein 1+ A Urine Glucose (UA) Negative Urine Ketones 3+ A Urine Blood Negative Urine Nitrite Negative Urine Bilirubin 1+ A Urine Urobilinogen (Auto) 2.0 Ur Leukocyte Esterase Negative Urine RBC 6 H Urine WBC 2 Ur Squamous Epith Cells < 1 Urine Bacteria None Ur Culture Indicated? Not Indicated Stool Occult Blood Urine Opiates Screen Positive A Urine Fentanyl Screen Negative Ur Barbiturates Screen Negative U Amphetamin/Meth Scrn Negative U Benzodiazepines Scrn Negative U Cocaine Metab Screen Negative U Marijuana (THC) Screen Positive A 04/09/24 08:28 WBC RBC Hgb Hct MCV MCH MCHC RDW Std Deviation Plt Count Neut % (Auto) Lymph % (Auto) [place] % (Auto) Eos % (Auto) Baso % (Auto) Neut # (Auto) Lymph # (Auto) [place] # (Auto) Eos # (Auto) Baso # (Auto) Immature Gran # (Auto) Absolute Nucleated RBC Immature Gran % Nucleated RBC % Sodium Potassium Chloride Carbon Dioxide Anion Gap BUN Creatinine Estim Creat Clear Calc eGFR BUN/Creatinine Ratio Glucose Calculated Osmolality Lactic Acid Calcium Corrected Calcium Total Bilirubin AST ALT Alkaline Phosphatase Total Creatine Kinase Total Protein Albumin Globulin Albumin/Globulin Ratio Procalcitonin Ur Collection Type Urine Color Urine Clarity Urine pH Ur Specific [place] Urine Protein Urine Glucose (UA) Urine Ketones Urine Blood Urine Nitrite Urine Bilirubin Urine Urobilinogen (Auto) Ur Leukocyte Esterase Urine RBC Urine WBC Ur Squamous Epith Cells Urine Bacteria Ur Culture Indicated? Stool Occult Blood Negative Urine Opiates Screen Urine Fentanyl Screen Ur Barbiturates Screen U Amphetamin/Meth Scrn U Benzodiazepines Scrn U Cocaine Metab Screen U Marijuana (THC) Screen Quality Measures Quality Measures none Assessment & Plan Assessment Current Active Medications: Generic Name Dose Route Start Last Admin Trade Name Freq PRN Reason Stop Dose Admin Sodium Chloride 1,000 mls @ 125 mls/hr 04/09/24 02:00 04/09/24 17:05 Ns IV 05/09/24 01:59 125 mls/hr .Q8H GENEVIEVE Administration Pantoprazole Sodium 80 mg in 100 mls @ 10 mls/hr 04/09/24 12:43 04/09/24 13:09 Protonix/Ns 80mg Iv Premix IV 04/12/24 00:42 10 mls/hr Q10H GENEVIEVE Administration Morphine Sulfate 2 mg 04/09/24 01:48 04/09/24 15:53 Morphine Sulf Inj 10 Mg/Ml Vial IVP 04/14/24 01:47 2 mg Q2H PRN Administration PAIN SCALE 7-10 (Severe Ondansetron HCl 4 mg 04/09/24 01:50 04/09/24 08:47 Ondansetron Inj 2 Mg/Ml Inj 2 Ml IV 05/09/24 01:49 4 mg Q6HR PRN Administration NAUSEA OR VOMITING Protocol Plan The patient is a 33-year young male with significant past medical history of marijuana abuse disorder who presented with chief complaint of abdominal pain and vomiting for past 3 to 4 days that was presumed to be likely secondary to acute gastroenteritis. However, patient also reported having black stool, and even though the drop in hemoglobin was likely dilutional as all cell line has been down, Dr. Mclean recommended EGD tomorrow evening due to history of black stool. #Intractable nausea and vomiting Likely secondary to acute viral gastroenteritis DDx: Food poisoning versus marijuana abuse disorder, as U-Tox was positive for marijuana, but patient denies any recent use of marijuana -Continue with maintenance IV fluid 125 mL/h -Clear liquid diet -GI consulted, appreciate recommendations #Acute anemia Likely dilutional as patient received IV bolus fluid in the ED DDx: UGI versus LGI bleeding at present reported having black stools -EGD tomorrow evening -GI Dr. Mclean consulted, appreciate further recommendations -Monitor CBC #Marijuana abuse disorder Patient reported that he has remote history of marijuana abuse, but U tox was positive for marijuana -Will consider social service referral and provide her with resources Hospital maintenance: Dispo: Med telemetry unit for further management of intractable nausea and vomiting and to rule out any GI bleed DVT prophylaxis: Not indicated Diet: Clear liquid diet, n.p.o. after 10 AM tomorrow CODE STATUS: Full code The patient's management plan was discussed with my attending physician MD Haseeb Sheridan MD, PGY2
[2024-04-10] VITALS (18 sets, daily range): BP systolic 92–148; BP diastolic 56–91; PULSE 56–112; RESP 11–20; TEMP 36.2–37.1; O2SAT 95–100
--- NOTE | 2024-04-10 | XR_ITS ---
Examinations: MRI Brain without intravenous contrast. 3-D vascular reconstructions Date and time of exam: April 10, 2024 1131 hours Indication: Stroke alert this a.m., onset dizziness vomiting left-sided numbness today Technique: Multiple axial and sagittal images of the brain have been obtained MRA brain carotid images without contrast obtained, including 3-D postprocessing, vascular maximum intensity projection images Findings: [place] is not enlarged. The optic chiasm and infundibular stalk are not remarkable. Prepontine and interpeduncular cisterns are not enlarged. No localized enlargement of the medulla or ananda. Fourth ventricle and cerebellar tonsils normal in position. Subacute hemorrhage is not seen. Fourth ventricle is midline. Mass in the cerebellopontine angle region is not evident. 7th and 8th nerve complexes exhibits symmetry. Globes are symmetrical with no retro-orbital mass. Increased white matter signal not seen Diffusion-weighted images demonstrate no focus of restricted diffusion Mass-effect upon the ventricular system is not identified. Impression: Negative for acute hemorrhage mass effect or midline shift No acute infarct No MR findings diagnostic for demyelinating disease
[2024-04-10] MEDS: SODIUM CHLORIDE 0.9% 1000 ML 1,000 ML 125 ML IV ×3 (01:47→22:56)
[2024-04-10 06:07] LABS: Basophils % (Auto) 1 % (0-2.5); Eosinophils # (Auto) 0.2 Thou/mm3 (0.0-0.5); Eosinophils % (Auto) 3 % (0-10); Hematocrit 36.3 % (41.0-53.0); Hemoglobin 12.8 g/dL (13.5-16.0); Immature Granulocytes % (Auto) 0 % (0-0); Immature Granulocytes Auto 0.02 Thou/mm3 (0.00-0.00); Lymphocytes # (Auto) 3.8 Thou/mm3 (1.0-4.8); Lymphocytes % (Auto) 53 % (10-50); Mean Corpuscular HGB Conc 35.3 g/dl (31.0-37.0); Mean Corpuscular Hemoglobin 27.9 pg (25.0-35.0); Mean Corpuscular Volume 79 fL (80-100); Monocytes # (Auto) 0.5 Thou/mm3 (0.0-0.8); Monocytes % (Auto) 7 % (0-12); Neutrophils # (Auto) 2.6 Thou/mm3 (1.8-7.7); Neutrophils % (Auto) 36 % (37-80); Nucleated Red Blood Cell % 0 /100 WBC (0); Platelet Count 176 Thou/mm3 (140-440); RDW Standard Deviation 34.2 fL (35.1-43.9); Red Blood Count 4.59 Miln/mm3 (4.50-5.90); White Blood Count 7.1 Thou/mm3 (3.8-10.6)
[2024-04-10 06:36] LABS: Alanine Aminotransferase 11 U/L (10-49); Albumin, Serum 3.9 gm/dL (3.5-5.0); Albumin/Globulin Ratio 1.8 (1.2-2.2); Alkaline Phosphatase 61 U/L (46-116); Anion Gap 10 (7-16); Aspartate Amino Transferase 11 U/L (0-34); BUN/Creatinine Ratio 9 Ratio (12-20); Bilirubin,Total 1.9 mg/dL (0.3-1.2); Blood Urea Nitrogen 7 mg/dL (9-23); Calcium 8.9 mg/dL (8.3-10.6); Chloride 101 mMol/L (98-107); Creatinine (Component) 0.8 mg/dL (0.6-1.3); Estimated Creatinine Clearance 142.5 mL/min (>60); Globulin 2.2 gm/dL (2.3-3.5); Glucose 87 mg/dL (74-106); Magnesium 1.4 mg/dL (1.6-2.6); Osmolality,Calculated 274 (275-295); Phosphorous 3.2 mg/dL (2.4-5.1); Sodium 139 mMol/L (136-145); Total Protein 6.1 gm/dL (5.7-8.2); eGFR > 60 See Note
[2024-04-10] MEDS: MORPHINE SULF INJ 10 MG/ML VIAL 2 MG IVP (07:02)
[2024-04-10] MEDS: ONDANSETRON INJ 2 MG/ML INJ 2 ML 4 MG IV ×2 (07:36→16:00)
--- NOTE | 2024-04-10 07:43 | XR_ITS ---
Examination: AP chest single view TECHNIQUE: AP upright portable chest single view Exam date and time: April 10, 2024 0801 hours INDICATIONS: Shortness of breath today. FINDINGS: No significant cardiac enlargement Mild vascular congestion Calcified granuloma in the right upper lobe, 8 mm No lobar pneumonia or pulmonary edema Mild osteopenia IMPRESSION: No lobar pneumonia or pulmonary edema
--- NOTE | 2024-04-10 07:43 | EKG_ITS ---
[facility] Test Date: 2024-04-10 Pat Name: SAADIA ALBARRAN [facility] Gender: Male [employer]: HUMA : 1990 Requested By: Racquel Willams Order Number: [id number] Reading MD: Racquel Willams Measurements Intervals [place] Rate: 74 P: 58 IA: 124 QRS: 74 QRSD: 100 T: 66 QT: 373 QTc: 414 Interpretive Statements SINUS RHYTHM Compared to ECG 04/09/2024 01:43:33 Sinus bradycardia no longer present Sinus arrhythmia no longer present /store/S0/[id number]/[id number].pdf
--- NOTE | 2024-04-10 07:54 | EVENTNT_ITS ---
<Statement entered by Catrachito Nichole MD - 04/15/24 12:09> I reviewed above note and agree with findings and plans. I have also personally examined the patient with medicine team and went over assessment and plan with medical team including email marketing intern and resident physician. Documentation for date of: 04/10/24 Event Note Event Note: Rapid response was called today around 7:41 AM due to patient having chest pain with numbness and tingling in his feet after 2 mg of morphine were administered and he had ambulated. During this time he also had shortness of breath. EKG, chest x-ray, and troponins were ordered. His heart rate was 68 and blood pressure was 145/89. EKG showed sinus rhythm with no acute ST changes and his troponins were negative. Patient has had a second response called around 914 due to strokelike symptoms. Stroke alert was called around 9:20 AM. At this time he was saturating 100% and his last well-known time was around 8:50 AM. Blood pressure during this time was 124/93. Patient had left lower and upper extremity weakness and numbness as well as left facial numbness. At this time teleneurology was consulted and patient was taken to the CT scan. Case disclosed with Attending Dr. Dayanara Beebe PGY1
--- NOTE | 2024-04-10 07:56 | PC.NURSE ---
Addendum entered by Luzmaria Montiel RN 04/10/24 11:13: 2nd rapid response called @ 0914 due patint c/o numbness and lack of feeling to left arm, heaviness left leg. rapid response converted to stroke alert @ 0920. orders redeceived and carried out. Addendum entered by Luzmaria Montiel RN 04/10/24 08:35: Correction: Rapid response ended @ 0751 Original Note: pt c/o pain 11/02 ater administration of pain med and new onset chest pain with N/V. Feet tingling. Rapid response called at 0741. Team arrived orders obtained and carried out. Rapid response ended @ 1051.
[2024-04-10] MEDS: METOCLOPRAMIDE INJ 5 MG/ML VIAL 2 ML IVP (08:05)
[2024-04-10 08:27] LABS: Troponin I < 0.020 ng/mL (0.0-0.045)
--- NOTE | 2024-04-10 08:34 | PC.NURSE ---
Called pharmacy for hyoscyamine, states is on its way
[2024-04-10] MEDS: HYOSCYAMINE SULF 0.125 MG TAB.SUBL 0.25 MG PO (08:40)
[2024-04-10] MEDS: POTASSIUM CHL 10 mEq IVPB 10 MEQ/100 ML BAG 100 MEQ IV (08:43)
--- NOTE | 2024-04-10 09:16 | XR_ITS ---
Examination: CT brain head without contrast. 2-D sagittal coronal reconstructions Date and time of exam:April 10, 2024 0927 hours INDICATIONS: Stroke alert, onset focal neurologic deficit, left-sided upper and lower extremity weakness beginning this morning CTDI: vol (mGy):52 DLP: (mGycm):1144 Technique: Multiple CT axial sections of the brain have been obtained, 5 mm slice thickness. Contrast has not been administered. 2-D sagittal, coronal reconstructions have been obtained Low dose protocols were performed. One or more of the following dose reduction techniques were used; automated exposure control, adjustment of the mA and/or KV according to patient size, use of iterative reconstruction technique. Findings: No significant ventricular enlargement. Intra-axial or extra-axial hemorrhage density is not seen. No mass effect or midline shift Basal cisterns are not remarkable. Fourth ventricle is midline. Cranial vault intact. Impression: Negative for acute hemorrhage, mass effect or midline shift Brain MRA MRI without contrast, stroke protocol, would best assess for demyelinating disease, acute ischemic change
--- NOTE | 2024-04-10 09:17 | ECHO_ITS ---
Transthoracic Echo Report Ht (in): 71 Wt (lb): 178 Exam Location: Portable Status: Inpatient Leather Coater: Dayana Banegas Indications: Procedure Performed: BP: 126 / 67 HR: 59 Rhythm: Bradycardia Technical Quality: Fair Contrast: Agitated Saline Total Dose (mL): MEASUREMENTS (Male / Female) Normal Values 2D ECHO LV Diastolic Diameter PLAX 4.9 cm 4.2 - 5.9 / 3.9 - 5.3 cm LV Systolic Diameter PLAX 3.5 cm IVS Diastolic Thickness 1.0 cm 0.6 - 1.0 / 0.6 - 0.9 cm LVPW Diastolic Thickness 0.8 cm 0.6 - 1.0 / 0.6 - 0.9 cm LV Relative Wall Thickness 0.4 LVOT Diameter 2.0 cm LA Volume Index 18.1 cm?/m? 16 - 28 cm?/m? Ascending Aorta Diameter 2.8 cm M-MODE Aortic Root Diameter MM 3.4 cm LA Systolic Diameter MM 3.2 cm LA Ao Ratio MM 0.9 AV Cusp Separation MM 2.0 cm DOPPLER AV Peak Velocity 141.0 cm/s AV Peak Gradient 8.0 mmHg AV Mean Gradient 3.0 mmHg AV Velocity Time Integral 27.0 cm LVOT Peak Velocity 106.3 cm/s LVOT Peak Gradient 4.5 mmHg LVOT Velocity Time Integral 21.3 cm LVOT Cardiac Index 1961.0 cm?/min?m? AV Area Cont Eq vti 2.5 cm? AV Area Cont Eq pk 2.4 cm? MV Peak Velocity 102.0 cm/s MV Peak Gradient 4.2 mmHg MV Mean Velocity 45.3 cm/s MV Mean Gradient 1.0 mmHg MV Area PHT 3.9 cm? Mitral E Point Velocity 100.0 cm/s Mitral A Point Velocity 56.3 cm/s Mitral E to A Ratio 1.8 LV E' Lateral Velocity 18.2 cm/s Mitral E to LV E' Lateral Ratio 5.5 LV E' Septal Velocity 11.6 cm/s Mitral E to LV E' Septal Ratio 8.6 TR Peak Velocity 219.0 cm/s TR Peak Gradient 19.2 mmHg FINDINGS Left Ventricle Normal left ventricular size, wall thickness, systolic function with no obvious regional wall motion abnormalities. The ejection fraction is visually estimated at 55-60%. Right Ventricle The right ventricle is normal in size and systolic function. The estimated right ventricular systoli c pressure, 24 mmHg. RAP 5. Left Atrium The left atrium is normal by two-dimensional, color flow and Doppler imaging with no structural abnormalities, no thrombus formation present. Right Atrium The right atrium is normal by two-dimensional imaging, color flow and Doppler imaging with no struct ural abnormalities, no thrombus formation present. Atrial Septum The interatrial septum appears normal with no evidence of a shunt. Aorta The aorta is normal by two-dimensional, color flow and Doppler interrogation. Mitral Valve The mitral valve is normal by two-dimensional, color flow and Doppler interrogation. There is no sig nificant mitral valve regurgitation. Aortic Valve The aortic valve is trileaflet and normal by two-dimensional, color flow and Doppler interrogation. There is trace aortic valve regurgitation. Tricuspid Valve The tricuspid valve is normal by two-dimensional, color flow and Doppler interrogation. There is tra ce tricuspid valve regurgitation. Pulmonic Valve The pulmonic valve is normal by two-dimensional, color flow and Doppler interrogation. There is no significant pulmonic valve regurgitation. Vessels The pulmonary artery appears normal. The inferior vena cava pulmonary and hepatic veins appear jayna l. Pericardium The pericardium is normal by two-dimensional imaging. There is no significant pericardial effusion. CONCLUSIONS Negative bubble study. No evidence of PFO or ASD. Normal LV size and function. Estimated EF 60% Normal RV size and function Trace AI, TR. Jennifer Noguera (Electronically Signed) Final Date: 11 April 2024 12:54
--- NOTE | 2024-04-10 09:23 | XR_ITS ---
Examination: CTA carotids with intravenous contrast CTA brain, head with intravenous contrast. 2-D sagittal, coronal reconstructions. 3-D reconstructions. Exam date and time: April 10, 2024 0935 hours INDICATIONS: Stroke alert, onset left-sided body weakness beginning this morning CTDI: vol (mGy) 11.0 DLP: (mGycm) 168 Technique: Multiple CTA axial brain, head carotid images post intravenous contrast injection 75 cc, [id number]. 2-D sagittal, coronal reconstructions. 3-D reconstructions, 3-D post processing including vascular maximum intensity projection images. Low dose protocols were performed. One or more of the following dose reduction techniques were used; automated exposure control, adjustment of the mA and/or KV according to patient size, use of iterative reconstruction technique. Findings: Calcified granuloma in the posterior right upper lobe No common carotid carotid bifurcation or internal carotid artery stenoses Dominant right vertebral artery with no significant stenoses No cerebral large vessel arterial occlusions, thrombus, dissection or cerebral aneurysm IMPRESSION: No significant neck arterial stenoses No cerebral large vessel arterial occlusions or thrombus
--- NOTE | 2024-04-10 09:52 | PD.VCONSULT1 ---
Telemedicine visit statement This visit was conducted with the use of interactive audio and video telecommunications system that permits real time communication between the patient and the provider. Patient's verbal consent for virtual visit was obtained on 04/10/24 at 0952. History of Present Illness History of Present Illness History of present illness: [facility] Patient Name:???evie garzon Date of :???1990 Identification Number:??? Date of Service:???04/10/2024 09:25:37 Diagnosis:?I63.89 - Cerebrovascular accident (CVA) due to other mechanism (HCCC) Impression: ?The patient is a 33 year old man with no significant past medical history, hospitalized for intractable dizziness and nausea/vomiting who is being evaluated for left sided weakness and numbness. Despite age and lack of vascular risk factors, CVA is considered. Not a candidate for thrombolytics. CTA ordered and will follow up results. Recommend evaluation of vascular risk factors with MRI brain, TTE, lipid panel, HgbA1C. Tolerate permissive hypertension. ASA 81 mg. If evaluation is negative for stroke, consider stroke mimic. Our recommendations are outlined below. Recommendations: ? Stroke/Telemetry Floor ? Neuro Checks ? Bedside Swallow Eval ? DVT Prophylaxis ? IV Fluids, Normal Saline ? Head of Bed 30 Degrees ? Euglycemia and Avoid Hyperthermia (PRN Acetaminophen) Sign Out: ? Discussed with Primary Attending Advanced Imaging: Advanced imaging has been ordered. Results pending. Metrics: Last Known Well: Unknown Dispatch Time: 04/10/2024 09:25:37 Initial Response Time: 04/10/2024 09:30:53Symptoms: left sided weakness and numbness . Initial patient interaction: 04/10/2024 09:37:05 NIHSS Assessment Completed: 04/10/2024 09:47:28Patient is not a candidate for Thrombolytic. Thrombolytic Medical Decision: 04/10/2024 09:47:29Patient was not deemed candidate for Thrombolytic because of following reasons: LKW outside 4.5 hr window. . I personally Reviewed the CT Head and it Showed no acute abnormality Primary Provider Notified of Diagnostic Impression and Management Plan on: 04/10/2024 09:49:52 Spoke With: hospitalist Able to Reach 04/10/2024 09:49:52 History of Present Illness:Patient is a 33 year old Male. Inpatient stroke alert was called for symptoms of left sided weakness and numbness . Patient hospitalized since 04/08 for intractable nausea/vomiting. Describes associated dizziness with room spinning sensation. Has been neurologically intact until this morning when he developed left sided weakness and numbness. Last normal at 8:50 AM. Reports involvement of face, arm, and leg. No prior similar symptoms. Reports mild headache. Past Medical History: ?There is no history of Hypertension ?There is no history of Diabetes Mellitus ?There is no history of Hyperlipidemia Medications: No Anticoagulant use? No Antiplatelet use Reviewed EMR for current medications Allergies:? NKDA Social History: Smoking: No Family History: There is no family history of premature cerebrovascular disease pertinent to this consultation ROS : 14 Points Review of Systems was performed and was negative except mentioned in HPI. Past Surgical History: There Is No Surgical History Contributory To Today?s Visit Examination: BP(124/93),?Pulse(68), 1A: Level of Consciousness - Alert; keenly responsive?+ 0 1B: Ask Month and Age - Both Questions Right?+ 0 1C: Blink Eyes & Squeeze Hands - Performs Both Tasks?+ 0 2: Test Horizontal Extraocular Movements - Normal?+ 0 3: Test Visual Rodriguez - No Visual Loss?+ 0 4: Test Facial Palsy (Use Grimace if Obtunded) - Normal symmetry?+ 0 5A: Test Left Arm Motor Drift - Drift, hits bed?+ 2 5B: Test Right Arm Motor Drift - No Drift for 10 Seconds?+ 0 6A: Test Left Leg Motor Drift - No Effort Against [place]?+ 3 6B: Test Right Leg Motor Drift - No Drift for 5 Seconds?+ 0 7: Test Limb Ataxia (FNF/Heel-Cooper) - No Ataxia?+ 0 8: Test Sensation - Complete Loss: Cannot Sense Being Touched At All?+ 2 9: Test Language/Aphasia - Normal; No aphasia?+ 0 10: Test Dysarthria - Normal?+ 0 11: Test Extinction/Inattention - No abnormality?+ 0 NIHSS Score:?7 Pre-Morbid Modified [place] Scale:0 Points = No symptoms at all Spoke with :?hospitalist This consult was conducted in real time using interactive audio and video technology. Patient was informed of the technology being used for this visit and agreed to proceed. Patient located in hospital and provider located at home/office setting. Patient is being evaluated for possible acute neurologic impairment and high probability of imminent or life-threatening deterioration. I spent total of 30 minutes providing care to this patient, including time for face to face visit via telemedicine, review of medical records, imaging studies and discussion of findings with providers, the patient and/or family. Dr Nova Dyer [facility] For Inpatient follow-up with [facility] physician please call [facility] at . As we are not an outpatient service for any post hospital discharge needs please contact the hospital for assistance. If you have any questions for the [facility] physicians or need to reconsult for clinical or diagnostic changes please contact us via [facility] at . Meds Home Medications and Allergies Allergies Allergy/AdvReac Type Severity Reaction Status Date / Time No Known Allergies Allergy Verified 04/08/24 09:18 Virtual exam Vital Signs Temp Pulse Resp BP Pulse Ox O2 Del Method 97.9 F 71 17 134/82 H 98 Room Air 04/10/24 08:00 04/10/24 08:00 04/10/24 08:00 04/10/24 08:00 04/10/24 08:00 04/10/24 08:00 Results Labs 04/10/24 05:10 04/10/24 05:10 Labs: Short CBC 04/10/24 Range/Units 05:10 WBC 7.1 (3.8-10.6) Thou/mm3 Hgb 12.8 L (13.5-16.0) g/dL Hct 36.3 L (41.0-53.0) % Plt Count 176 D (140-440) Thou/mm3 BMP 04/10/24 05:10 Sodium 139 Potassium 3.0 L D Chloride 101 Carbon Dioxide 28.0 BUN 7 L Creatinine 0.8 Glucose 87 Calcium 8.9 Cardiac Enzymes 04/10/24 Range/Units 07:47 Troponin I < 0.020 (0.0-0.045) ng/mL Liver Function 04/10/24 Range/Units 05:10 Total Bilirubin 1.9 H D (0.3-1.2) mg/dL AST 11 (0-34) U/L ALT 11 (10-49) U/L Alkaline Phosphatase 61 (46-116) U/L Albumin 3.9 (3.5-5.0) gm/dL
[2024-04-10 10:07] LABS: INR 1.1 (0.9-1.3); Partial Thromboplastin Time 25.5 Seconds (22.0-36.0); Prothrombin Time 12.4 Seconds (9.0-12.2)
[2024-04-10 10:31] LABS: Alanine Aminotransferase 16 U/L (10-49); Albumin, Serum 4.7 gm/dL (3.5-5.0); Albumin/Globulin Ratio 1.9 (1.2-2.2); Alkaline Phosphatase 75 U/L (46-116); Anion Gap 13 (7-16); Aspartate Amino Transferase 18 U/L (0-34); BUN/Creatinine Ratio 9 Ratio (12-20); Bilirubin,Total 2.2 mg/dL (0.3-1.2); Blood Urea Nitrogen 8 mg/dL (9-23); Calcium 9.6 mg/dL (8.3-10.6); Calcium (Corrected) 9.6 mg/dL (8.5-10.1); Carbon Dioxide 26.5 mMol/L (20.0-31.0); Cardiac Risk Estimate 3.9 RATIO (4.0-6.7); Chloride 98 mMol/L (98-107); Cholesterol 145 mg/dL (132-200); Creatinine (Component) 0.9 mg/dL (0.6-1.3); Estimated Creatinine Clearance 126.7 mL/min (>60); Globulin 2.5 gm/dL (2.3-3.5); Glucose 87 mg/dL (74-106); HDL Cholesterol 37 mg/dL (40-60); LDL Cholesterol,Calculated 92 mg/dL (0-130); Magnesium 1.6 mg/dL (1.6-2.6); Osmolality,Calculated 271 (275-295); Potassium 3.2 mMol/L (3.4-5.1); Sodium 137 mMol/L (136-145); Total Protein 7.2 gm/dL (5.7-8.2); Triglycerides 81 mg/dL (30-150); eGFR > 60 See Note
[2024-04-10] MEDS: PANTOPRAZOLE/NS 80MG IV PREMIX 80 MG/100 ML BAG 10 MG IV ×2 (10:33→22:57)
[2024-04-10 10:57] LABS: Basophils % (Auto) 0 % (0-2.5); Eosinophils # (Auto) 0.1 Thou/mm3 (0.0-0.5); Eosinophils % (Auto) 1 % (0-10); Hematocrit 41.1 % (41.0-53.0); Immature Granulocytes % (Auto) 0 % (0-0); Immature Granulocytes Auto 0.03 Thou/mm3 (0.00-0.00); Lymphocytes # (Auto) 1.9 Thou/mm3 (1.0-4.8); Lymphocytes % (Auto) 19 % (10-50); Mean Corpuscular HGB Conc 36.5 g/dl (31.0-37.0); Mean Corpuscular Hemoglobin 27.8 pg (25.0-35.0); Mean Corpuscular Volume 76 fL (80-100); Monocytes # (Auto) 0.7 Thou/mm3 (0.0-0.8); Monocytes % (Auto) 7 % (0-12); Neutrophils # (Auto) 7.3 Thou/mm3 (1.8-7.7); Neutrophils % (Auto) 73 % (37-80); Nucleated Red Blood Cell % 0 /100 WBC (0); Platelet Count 229 Thou/mm3 (140-440); Red Blood Count 5.39 Miln/mm3 (4.50-5.90)
--- NOTE | 2024-04-10 11:14 | ESPR_ITS ---
<Statement entered by Catrachito Nichole MD - 04/15/24 12:10> I reviewed above note and agree with findings and plans. I have also personally examined the patient with medicine team and went over assessment and plan with medical team including digital marketing intern and resident physician. Documentation for date of: 04/10/24 Subjective Subjective Interval history: Patient was seen at bedside this morning. Patient had 2 rapid response called this morning, please refer to event note from 04/10/2024. Patient's head CT and CTA, and MRI were unremarkable. General RT recommended to start patient on aspirin. Initially patient had decreased sensation in his left side of his body as well as weakness on his left upper and lower extremity. In the afternoon patient did have some improvement in his symptoms as she regained some sensation in his left side of the body as well as strength. Exam Vital Signs Temp Pulse Resp BP Pulse Ox O2 Del Method 97.9 F 71 17 134/82 H 98 Room Air 04/10/24 08:00 04/10/24 08:00 04/10/24 08:00 04/10/24 08:00 04/10/24 08:00 04/10/24 08:00 Narrative Exam General: A/O x3, ill-appearing Eyes: PERRL, EOMI. Anicteric, vision grossly intact. Ears: No ear pain, no ear discharge, Hearing grossly intact. Nose: No nasal discharge. Mouth/Throat: Dry mucous membranes, no redness, no lesions. Neck: Neck supple, non-tender, no cervical lymphadenopathy. Lungs: Clear NANCY to auscultation and percussion, No accessory muscle use. Cardio: Normal S1/S2, regular rhythm, no murmurs, no JVD Abdomen: Soft, non-tender, no palpable masses, peristalsis present, no guarding or rebound. Extremities: Symmetrical, no significant deformities, no peripheral edema , non-tender, peripheral pulses presents. Skin: No rashes, no lesions, warm to touch. Neuro: Left facial sensation decreased when compared to right, left lower and upper extremity sensation decreased when compared to the right, left upper extremity strength 3 out of 5 and left lower extremity strength 2 out of 5. Symptoms have slightly improved when compared to initial symptoms this morning. Objective Labs 04/10/24 09:34 04/10/24 09:36 Labs: Laboratory Results - last 24 hr 04/10/24 04/10/24 04/10/24 05:10 07:47 09:34 WBC 7.1 10.0 D RBC 4.59 5.39 Hgb 12.8 L 15.0 D Hct 36.3 L 41.1 MCV 79 L 76 L MCH 27.9 27.8 MCHC 35.3 36.5 RDW Std Deviation 34.2 L 32.0 L Plt Count 176 D 229 D Neut % (Auto) 36 L 73 Lymph % (Auto) 53 H 19 [place] % (Auto) 7 7 Eos % (Auto) 3 1 Baso % (Auto) 1 0 Neut # (Auto) 2.6 7.3 Lymph # (Auto) 3.8 1.9 [place] # (Auto) 0.5 0.7 Eos # (Auto) 0.2 0.1 Baso # (Auto) 0.0 0.0 Immature Gran # (Auto) 0.02 H 0.03 H Absolute Nucleated RBC 0.00 0.00 Immature Gran % 0 0 Nucleated RBC % 0 0 PT 12.4 H INR 1.1 APTT 25.5 Sodium 139 Potassium 3.0 L D Chloride 101 Carbon Dioxide 28.0 Anion Gap 10 BUN 7 L Creatinine 0.8 Estim Creat Clear Calc 142.5 eGFR > 60 BUN/Creatinine Ratio 9 L Glucose 87 Calculated Osmolality 274 L Calcium 8.9 Corrected Calcium 9.0 Phosphorus 3.2 Magnesium 1.4 L Total Bilirubin 1.9 H D AST 11 ALT 11 Alkaline Phosphatase 61 Troponin I < 0.020 Total Protein 6.1 Albumin 3.9 Globulin 2.2 L Albumin/Globulin Ratio 1.8 Triglycerides Cholesterol LDL Cholesterol, Calc HDL Cholesterol Cholesterol/HDL Ratio 04/10/24 09:36 WBC RBC Hgb Hct MCV MCH MCHC RDW Std Deviation Plt Count Neut % (Auto) Lymph % (Auto) [place] % (Auto) Eos % (Auto) Baso % (Auto) Neut # (Auto) Lymph # (Auto) [place] # (Auto) Eos # (Auto) Baso # (Auto) Immature Gran # (Auto) Absolute Nucleated RBC Immature Gran % Nucleated RBC % PT INR APTT Sodium 137 Potassium 3.2 L Chloride 98 Carbon Dioxide 26.5 Anion Gap 13 BUN 8 L Creatinine 0.9 Estim Creat Clear Calc 126.7 eGFR > 60 BUN/Creatinine Ratio 9 L Glucose 87 Calculated Osmolality 271 L Calcium 9.6 Corrected Calcium 9.6 Phosphorus Magnesium 1.6 Total Bilirubin 2.2 H AST 18 ALT 16 Alkaline Phosphatase 75 D Troponin I Total Protein 7.2 Albumin 4.7 D Globulin 2.5 Albumin/Globulin Ratio 1.9 Triglycerides 81 Cholesterol 145 LDL Cholesterol, Calc 92 HDL Cholesterol 37 L Cholesterol/HDL Ratio 3.9 L Quality Measures Quality Measures none Assessment & Plan Assessment Current Active Medications: Generic Name Dose Route Start Last Admin Trade Name Freq PRN Reason Stop Dose Admin Atorvastatin Calcium 80 mg 04/10/24 21:00 Atorvastatin Calcium 20 Mg Tablet PO 05/10/24 20:59 HS GENEVIEVE Sodium Chloride 1,000 mls @ 125 mls/hr 04/09/24 02:00 04/10/24 01:47 Ns IV 05/09/24 01:59 125 mls/hr .Q8H GENEVIEVE Administration Pantoprazole Sodium 80 mg in 100 mls @ 10 mls/hr 04/09/24 12:43 04/10/24 10:33 Protonix/Ns 80mg Iv Premix IV 04/12/24 00:42 10 mls/hr Q10H GENEVIEVE Administration Potassium Chloride 10 meq in 100 mls @ 100 mls/hr 04/10/24 08:00 04/10/24 08:43 Kcl Ivpb IV 04/10/24 11:59 100 mls/hr Q1H GENEVIEVE Administration Magnesium Sulfate 4 gm in 50 mls @ 12.5 mls/hr 04/10/24 07:49 Magnesium Sulfate Ivpb IV 04/10/24 11:48 X1 ONE Ondansetron HCl 4 mg 04/09/24 01:50 04/10/24 07:36 Ondansetron Inj 2 Mg/Ml Inj 2 Ml IV 05/09/24 01:49 4 mg Q6HR PRN Administration NAUSEA OR VOMITING Protocol Plan 33-year-old male with no relevant past medical history was admitted to the hospital on 04/09/2024 due to intractable nausea and vomiting likely secondary to gastroenteritis. #Stroke like symptoms #TIA? #Left facial numbness #Left upper and lower extremity weakness and numbness ?Patient today developed left lower and upper extremity weakness and numbness. As well as left facial numbness. ?DDx TIA versus reversible cerebral vasoconstriction secondary to marijuana use in the setting of dehydration ?NIHSS score 7 ?CTA head and neck negative ?CT head negative -MRI negative ?Teleneuro consulted and advised asprin 81 mg qday and MRI Plan: -Aspirin 81 mg qday ?Patient was out of window for IV thrombolytics. ?Neurochecks every 4 hours ?Allow permissive hypertension ?Head of bed elevation to 30 degrees ?Aspiration precautions -Consult in-hospital neurology, appreciate recommendations -Referred to speech and physical therapy #Intractable nausea and vomiting #Marijuana abuse disorder ? Patient stated that he has had nausea and vomiting for the past 4 days prior to admission after he went to a restaurant and ate some garbanzo beans. ? DDx Food poisoning versus marijuana induced emesis in the setting of positive U tox for marijuana. Plan: ? N.p.o. ? Protonix ?GI consulted, pressure recommendations ? Will continue to monitor #Normocytic normochromic anemia #Upper GI bleed? ?Patient reported seeing specks of black stools on his last bowel movement. ? DDx upper GI bleed was lower GI bleed versus hemodilutional ? Hemoglobin 15.7 on admission and down trended to 12.4, but patient did receive IV fluids in the ED ? Hemoglobin 15 today Plan: ? Pending EGD ? Will transfuse hemoglobin less than 7 ? GI consulted, patient recommendations Disposition: Patient transferred to telemetry due to Stroke like sx. Pending in house neurology recs Diet: NPO until patient passes nurse swallow screen. GI prophylaxis: protonix DVT prophylaxis: Heparin sc Code: Full code Case disclosed with Attending Dr. Nichole and My senior Dr. Villarreal PGY2. Kelton Beebe PGY1 Senior Resident Attestation: Internal Medicine The patient is a 33-year-old male with significant past medical history of marijuana abuse disorder, though he reported he has not taken for past couple of months but he is U tox was positive for marijuana, presented with chief complaint of nausea, vomiting and abdominal pain for 1 day and is being treated for possible viral gastroenteritis. This morning, patient reported that he continues to have dizziness. However, a little bit later CUSTOMIZER was called as for chest pain and numbness and tingling in his feet after 2 mg of morphine administration via IV route. CXR and EKG including troponins were WNL. His vitals were stable, mildly hypertensive. Again around 8:50 AM CUSTOMIZER and stroke alert was called as patient was complaining of left-sided hemiparesis and hemiplegia. CT head, CTA head and neck and MRI stroke protocol were all negative. The patient was thought to have reversible cerebral vasoconstriction syndrome secondary to marijuana abuse further precipitated by dehydration in the setting of nausea and vomiting though TIA could not be ruled out. His labs were significant for hypokalemia, and was repleted. We will continue with IV maintenance fluid 125 cc/h in the setting of dehydration. The patient's will undergo EGD this evening. The plan is to discharge the patient home if his EGD, vitals and labs are stable by tomorrow. I discussed with and supervised the digital marketing intern physician involved in the care of this patient. I personally saw and examined the patient and discussed the assessment and plan with the entire medicine team, including my attending. I agree with the assessment and plan as documented above. Haseeb Villarreal MD PGY2
[2024-04-10] MEDS: POTASSIUM CHL 10 mEq IVPB 10 MEQ/100 ML BAG 75 MEQ IV ×6 (12:09→23:31)
--- NOTE | 2024-04-10 13:34 | PC.NURSE ---
Pt transferred to 266 @ [id number], report given in handoff to Oscar HUNT
[2024-04-10] MEDS: HEPARIN SOD INJ 5000 UNIT/ML VIAL SC ×2 (13:59→23:02)
[2024-04-10] MEDS: Magnesium Sulfate 4 GM Ivpb 4 GM/50 ML BAG IV (16:10)
--- NOTE | 2024-04-10 22:12 | SUR.PHASEI ---
Pt. arrived to recovery via gurney, eyes open, VSS, lung sounds clear, equal expansion roro., no c/o pain or nausea at this time, report received from Glendy HUNT.
--- NOTE | 2024-04-10 22:38 | SUR.PHASEI ---
Called and gave report on pt. s/p procedure to Ja HUNT on telemetry unit.
--- NOTE | 2024-04-10 22:45 | SUR.PHASEI ---
Pt. transferred to room 266 via ANGY rubio, no c/o pain or nausea at this time, pt. tolerating sips of water, Ja HUNT assumed care of pt.
--- NOTE | 2024-04-10 23:50 | ESPR_ITS ---
Documentation for date of: 04/10/24 Subjective Subjective Interval history: Patient was seen in telemetry today at the bedside. Continues to complain of nausea vomiting and dizziness and intermittent is on the left side. But much better than this morning. waiting for upper GI endoscopy today Exam - Neurology Vital Signs Temp Pulse Resp BP Pulse Ox O2 Del Method O2 Flow Rate 98.7 F 98 16 100/56 L 98 Room Air 3 04/10/24 22:12 04/10/24 22:32 04/10/24 22:32 04/10/24 22:32 04/10/24 22:32 04/10/24 20:00 04/10/24 22:00 Narrative Exam GENERAL APPEARANCE: Well hydrated, well-nourished in no acute distress. HEENT: Normocephalic, atraumatic, extraocular movements intact. Pupils: Equal reacting to light and accommodation NECK: Supple, no JVD or bruits. CARDIOVASULAR: Heart: S1, S2 heard, regular without S3-S4 or murmur no rubs or gallops. LUNGS/CHEST: Clear to auscultation bilaterally. No rails, rhonchi, or wheezing. Normal inspection. ABDOMEN: Soft, nontender, with normal bowel sounds. No pulsatile masses. No rebound, rigidity, or guarding. Normal inspection and palpation. EXTREMITIES: Normal inspection and palpation. No edema, clubbing or cyanosis. SKIN: Warm and dry without rashes. Normal inspection. MUSCULOSKELETAL: No cervical, thoracic, lumbar or midline bony tenderness. Normal inspection. NEURO: Alert, awake and oriented x3. Cranial nerves: II through XII grossly intact. Speech and language: Normal with no dysarthria or dysphasia. Motor system: Tone and bulk: Normal: Strength: 5 out of 5 in all 4 extremities; No pronator drift noted. Deep tendon reflexes: 2+ bilaterally symmetrical. Plantar reflex: Downgoing bilaterally. Sensory system: Intact to all modalities of sensation bilaterally. Coordination: Intact to [id number] and kqrw-[id number] test bilaterally. No ataxia, no dysmetria, or dysdiadochokinesia noted. No intention tremors noted. Gait: Tested. No signs of meningeal irritation noted. PSYCHIATRIC: Normal mood and affect. Objective Labs 04/12/24 05:02 04/12/24 05:02 Labs: Laboratory Results - last 24 hr 04/10/24 04/10/24 04/10/24 05:10 07:47 09:34 WBC 7.1 10.0 D RBC 4.59 5.39 Hgb 12.8 L 15.0 D Hct 36.3 L 41.1 MCV 79 L 76 L MCH 27.9 27.8 MCHC 35.3 36.5 RDW Std Deviation 34.2 L 32.0 L Plt Count 176 D 229 D Neut % (Auto) 36 L 73 Lymph % (Auto) 53 H 19 [place] % (Auto) 7 7 Eos % (Auto) 3 1 Baso % (Auto) 1 0 Neut # (Auto) 2.6 7.3 Lymph # (Auto) 3.8 1.9 [place] # (Auto) 0.5 0.7 Eos # (Auto) 0.2 0.1 Baso # (Auto) 0.0 0.0 Immature Gran # (Auto) 0.02 H 0.03 H Absolute Nucleated RBC 0.00 0.00 Immature Gran % 0 0 Nucleated RBC % 0 0 PT 12.4 H INR 1.1 APTT 25.5 Sodium 139 Potassium 3.0 L D Chloride 101 Carbon Dioxide 28.0 Anion Gap 10 BUN 7 L Creatinine 0.8 Estim Creat Clear Calc 142.5 eGFR > 60 BUN/Creatinine Ratio 9 L Glucose 87 Calculated Osmolality 274 L Calcium 8.9 Corrected Calcium 9.0 Phosphorus 3.2 Magnesium 1.4 L Total Bilirubin 1.9 H D AST 11 ALT 11 Alkaline Phosphatase 61 Troponin I < 0.020 Total Protein 6.1 Albumin 3.9 Globulin 2.2 L Albumin/Globulin Ratio 1.8 Triglycerides Cholesterol LDL Cholesterol, Calc HDL Cholesterol Cholesterol/HDL Ratio 04/10/24 09:36 WBC RBC Hgb Hct MCV MCH MCHC RDW Std Deviation Plt Count Neut % (Auto) Lymph % (Auto) [place] % (Auto) Eos % (Auto) Baso % (Auto) Neut # (Auto) Lymph # (Auto) [place] # (Auto) Eos # (Auto) Baso # (Auto) Immature Gran # (Auto) Absolute Nucleated RBC Immature Gran % Nucleated RBC % PT INR APTT Sodium 137 Potassium 3.2 L Chloride 98 Carbon Dioxide 26.5 Anion Gap 13 BUN 8 L Creatinine 0.9 Estim Creat Clear Calc 126.7 eGFR > 60 BUN/Creatinine Ratio 9 L Glucose 87 Calculated Osmolality 271 L Calcium 9.6 Corrected Calcium 9.6 Phosphorus Magnesium 1.6 Total Bilirubin 2.2 H AST 18 ALT 16 Alkaline Phosphatase 75 D Troponin I Total Protein 7.2 Albumin 4.7 D Globulin 2.5 Albumin/Globulin Ratio 1.9 Triglycerides 81 Cholesterol 145 LDL Cholesterol, Calc 92 HDL Cholesterol 37 L Cholesterol/HDL Ratio 3.9 L Assessment & Plan Assessment and plan (1) Abdominal pain: Status: Acute Assessment and plan: Likely Gastritis FU with endoscopy result. life style changes discussed. (2) Paresthesia: Status: Acute Assessment and plan: likely anxiety related. MRIbrain: negative
[2024-04-11] VITALS: BP 100/54; PULSE 75; RESP 12; TEMP 36.4; O2SAT 97
[2024-04-11 04:00] VITALS: BP 100/55; PULSE 65; PULSE 81; RESP 17; TEMP 36.4; O2SAT 97
--- NOTE | 2024-04-11 05:00 | XR_ITS ---
Examination: EDEN, hepatobiliary radioisotope scan Gallbladder ejection fraction study. Date and time of exam: April 14, 2024 1340 hours INDICATIONS: Nausea vomiting after eating this week Technique: 6 mCi of 99M Hepatolite administered. Serial imaging then obtained from immediate through 60 minutes. 1.6 mcg selective catheter Kinevac administered for gallbladder ejection fraction study. Findings: Radioisotope activity within the liver is reasonably homogenous. Gallbladder, common bile duct small bowel activity noted Impression: Gallbladder activity Normal gallbladder ejection fraction, 56%, normal greater than 35%
[2024-04-11 06:02] LABS: Basophils % (Auto) 1 % (0-2.5); Eosinophils # (Auto) 0.3 Thou/mm3 (0.0-0.5); Eosinophils % (Auto) 3 % (0-10); Hematocrit 37.7 % (41.0-53.0); Hemoglobin 13.7 g/dL (13.5-16.0); Immature Granulocytes % (Auto) 0 % (0-0); Immature Granulocytes Auto 0.02 Thou/mm3 (0.00-0.00); Lymphocytes % (Auto) 36 % (10-50); Mean Corpuscular HGB Conc 36.3 g/dl (31.0-37.0); Mean Corpuscular Volume 77 fL (80-100); Monocytes # (Auto) 0.7 Thou/mm3 (0.0-0.8); Monocytes % (Auto) 9 % (0-12); Neutrophils # (Auto) 4.3 Thou/mm3 (1.8-7.7); Neutrophils % (Auto) 52 % (37-80); Nucleated Red Blood Cell % 0 /100 WBC (0); Platelet Count 222 Thou/mm3 (140-440); RDW Standard Deviation 31.8 fL (35.1-43.9); White Blood Count 8.3 Thou/mm3 (3.8-10.6)
[2024-04-11 06:07] LABS: Glucose Estimated Average 103 mg/dL (80-131); Hemoglobin A1C 5.2 % Hgb (4.8-6.0)
[2024-04-11] MEDS: SODIUM CHLORIDE 0.9% 1000 ML 1,000 ML 125 ML IV ×4 (06:13→22:28)
[2024-04-11 06:37] LABS: Alanine Aminotransferase 12 U/L (10-49); Albumin, Serum 4.1 gm/dL (3.5-5.0); Albumin/Globulin Ratio 1.7 (1.2-2.2); Alkaline Phosphatase 66 U/L (46-116); Anion Gap 10 (7-16); BUN/Creatinine Ratio 9 Ratio (12-20); Bilirubin,Total 1.6 mg/dL (0.3-1.2); Blood Urea Nitrogen 7 mg/dL (9-23); Carbon Dioxide 26.6 mMol/L (20.0-31.0); Chloride 100 mMol/L (98-107); Creatinine (Component) 0.8 mg/dL (0.6-1.3); Estimated Creatinine Clearance 142.5 mL/min (>60); Globulin 2.4 gm/dL (2.3-3.5); Glucose 89 mg/dL (74-106); Magnesium 1.9 mg/dL (1.6-2.6); Osmolality,Calculated 270 (275-295); Phosphorous 3.8 mg/dL (2.4-5.1); Potassium 3.3 mMol/L (3.4-5.1); Sodium 137 mMol/L (136-145); Total Protein 6.5 gm/dL (5.7-8.2); eGFR > 60 See Note
[2024-04-11 06:49] LABS: Aspartate Amino Transferase 11 U/L (0-34)
[2024-04-11] MEDS: PANTOPRAZOLE/NS 80MG IV PREMIX 80 MG/100 ML BAG 10 MG IV ×2 (07:28→16:08)
[2024-04-11] MEDS: POTASSIUM CHL 10 mEq IVPB 10 MEQ/100 ML BAG 75 MEQ IV ×4 (07:45→14:06)
[2024-04-11 08:00] VITALS: BP 135/81; PULSE 68; PULSE 96; RESP 19; TEMP 36.1; O2SAT 99
[2024-04-11] MEDS: ONDANSETRON INJ 2 MG/ML INJ 2 ML 4 MG IV ×2 (08:30→14:46)
[2024-04-11] MEDS: ASPIRIN 300 MG SUPP PR (09:29)
[2024-04-11 12:00] VITALS: BP 140/92; PULSE 73; PULSE 87; RESP 20; TEMP 36.2; O2SAT 99
[2024-04-11] MEDS: HEPARIN SOD INJ 5000 UNIT/ML VIAL SC ×2 (14:06→21:19)
--- NOTE | 2024-04-11 15:28 | PC.SS ---
Addendum entered by Michelle Willams 04/11/24 15:59: SS reviewed chart and patient already applied for HPE and was denied due to him already having this within a one year period. Patient needs to follow up with [email or web address] application. All meds at discharge will be out of pocket. Original Note: Patient is alert/oriented. Patient independent with ADL's. Patient resides with family. Admitted for abdominal pain. Patient is listed as self pay. SS spoke to financial counselor and they are connecting with [email or web address] worker to have them follow up with patient on application process. Financial counselors are also going to apply for HPE for patient. Possible d/c home today. Patient can follow up with [facility]. Mother, Shruthi, is alt medical decision maker.
--- NOTE | 2024-04-11 15:35 | ESPR_ITS ---
<Statement entered by Catrachito Nichole MD - 04/15/24 12:19> I reviewed above note and agree with findings and plans. I have also personally examined the patient with medicine team and went over assessment and plan with medical team including biomedical engineering internship and resident physician. Documentation for date of: 04/11/24 Subjective Subjective Interval history: The patient reported that he is doing a little bit better than yesterday. He reported his left hemiparesis has been improving, with muscle strength of 3/5 in both upper and lower left extremity. He denied any nausea or vomiting, abdominal pain, any diarrhea or UTI symptoms. He denied any fever or chills. Overnight, he underwent EGD with GI Dr. Mclean, and was found to have lower esophagitis and erythematous gastritis. He was amount of bile once present on a stomach significant for bile reflux gastritis and was ordered HIDA scan. Exam Vital Signs Temp Pulse Resp BP Pulse Ox O2 Del Method O2 Flow Rate 97.1 F 73 20 140/92 H 99 Room Air 3 04/11/24 12:00 04/11/24 12:04/11/24 12:04/11/24 12:04/11/24 12:04/11/24 12:04/10/24 22:00 Narrative Exam General: A/O x3, ill-appearing Eyes: PERRL, EOMI. Anicteric, vision grossly intact. Ears: No ear pain, no ear discharge, Hearing grossly intact. Nose: No nasal discharge. Mouth/Throat: Dry mucous membranes, no redness, no lesions. Neck: Neck supple, non-tender, no cervical lymphadenopathy. Lungs: Clear NANCY to auscultation and percussion, No accessory muscle use. Cardio: Normal S1/S2, regular rhythm, no murmurs, no JVD Abdomen: Soft, non-tender, no palpable masses, peristalsis present, no guarding or rebound. Extremities: Symmetrical, no significant deformities, no peripheral edema , non-tender, peripheral pulses presents. Skin: No rashes, no lesions, warm to touch. Neuro: Left facial sensation decreased when compared to right, left lower and upper extremity sensation decreased when compared to the right, left upper extremity strength 3 out of 5 and left lower extremity strength 3 out of 5. Symptoms have slightly improved when compared to initial symptoms this morning. Objective Labs 04/11/24 05:18 04/11/24 05:18 Labs: Laboratory Results - last 24 hr 04/11/24 05:18 WBC 8.3 RBC 4.90 Hgb 13.7 Hct 37.7 L MCV 77 L MCH 28.0 MCHC 36.3 RDW Std Deviation 31.8 L Plt Count 222 Neut % (Auto) 52 Lymph % (Auto) 36 [place] % (Auto) 9 Eos % (Auto) 3 Baso % (Auto) 1 Neut # (Auto) 4.3 Lymph # (Auto) 3.0 [place] # (Auto) 0.7 Eos # (Auto) 0.3 Baso # (Auto) 0.0 Immature Gran # (Auto) 0.02 H Absolute Nucleated RBC 0.00 Immature Gran % 0 Nucleated RBC % 0 Sodium 137 Potassium 3.3 L Chloride 100 Carbon Dioxide 26.6 Anion Gap 10 BUN 7 L Creatinine 0.8 Estim Creat Clear Calc 142.5 eGFR > 60 BUN/Creatinine Ratio 9 L Glucose [address] Glu mg/dL 103 Hemoglobin A1c 5.2 Calculated Osmolality 270 L Calcium 9.0 Corrected Calcium 9.0 Phosphorus 3.8 Magnesium 1.9 Total Bilirubin 1.6 H D AST 11 ALT 12 Alkaline Phosphatase 66 Total Protein 6.5 Albumin 4.1 D Globulin 2.4 Albumin/Globulin Ratio 1.7 Quality Measures Quality Measures none Assessment & Plan Assessment Current Active Medications: Generic Name Dose Route Start Last Admin Trade Name Freq PRN Reason Stop Dose Admin Aspirin 300 mg 04/11/24 09:00 04/11/24 09:29 Aspirin 300 Mg Supp [place] 05/11/24 08:59 300 mg QDAY GENEVIEVE Administration Atorvastatin Calcium 80 mg 04/10/24 21:00 04/10/24 21:10 Atorvastatin Calcium 20 Mg Tablet PO 05/10/24 20:59 Not Given HS GENEVIEVE Heparin Sodium (Porcine) 5,000 unit 04/10/24 14:00 04/11/24 14:06 Heparin Sod Inj 5000 Unit/Ml Vial SC 04/24/24 13:59 5,000 unit Q8HR GENEVIEVE Administration Sodium Chloride 1,000 mls @ 125 mls/hr 04/09/24 02:00 04/11/24 14:46 Ns IV 05/09/24 01:59 125 mls/hr .Q8H GENEVIEVE Administration Pantoprazole Sodium 80 mg in 100 mls @ 10 mls/hr 04/09/24 12:43 04/11/24 07:28 Protonix/Ns 80mg Iv Premix IV 04/12/24 00:42 10 mls/hr Q10H GENEVIEVE Administration Promethazine HCl 12.5 mg/ 50.5 mls @ 2.5 mls/min 04/10/24 23:37 Sodium Chloride IV 05/10/24 22:05 Q6HR PRN NAUSEA OR VOMITING Ondansetron HCl 4 mg 04/09/24 01:50 04/11/24 14:46 Ondansetron Inj 2 Mg/Ml Inj 2 Ml IV 05/09/24 01:49 4 mg Q6HR PRN Administration NAUSEA OR VOMITING Protocol Plan 33-year-old male with no relevant past medical history was admitted to the hospital on 04/09/2024 due to intractable nausea and vomiting likely secondary to gastroenteritis. #TIA, ruled out #Left facial numbness, and #Left upper and lower extremity weakness and numbness 2/2 #Anxiety ?Patient today developed left lower and upper extremity weakness and numbness. As well as left facial numbness. ?DDx TIA versus reversible cerebral vasoconstriction secondary to marijuana use in the setting of dehydration ?NIHSS score 7 ?CTA head and neck negative ?CT head negative -MRI negative ?Teleneuro consulted and advised asprin 81 mg qday, has been started on equivalent dose of for rectal aspirin 300 Mg daily. Plan: -Neurologist Dr. Roche believes that his symptoms are likely secondary to his anxiety in the setting of acute illness secondary to gastroenteritis -Continue with hydration -Continue to monitor -Daily a.m. labs, electrolyte panels, CBC and CMP -Replete electrolytes as needed #Hypokalemia Likely secondary to intractable nausea and vomiting Was found to have hypokalemic with potassium level 3.0, yesterday received 70 mEq of KCl IV, and this morning potassium level was 3.3 again -Repleted with 40 mEq IV KCl #Intractable nausea and vomiting #Hyperbilirubinemia, trending down Likely secondary to bile reflux gastropathy DDx: Marijuana abuse disorder ? Patient stated that he has had nausea and vomiting for the past 4 days prior to admission after he went to a restaurant and ate some garbanzo beans. ? DDx Food poisoning versus marijuana induced emesis in the setting of positive U tox for marijuana. - EGD was significant for a large amount of bile acid in the stomach Plan: ? N.p.o. ? Protonix ? HIDA scan ordered ? Will continue to monitor #Lower esophagitis #Gastritis Plan: -On Protonix drip -We will start the patient on peptic ulcer diet after HIDA scan #Normocytic normochromic anemia, resolved Likely dilutional Disposition: Patient admitted to telemetry unit for further management of bile acid gastropathy Diet: NPO until HIDA scan GI prophylaxis: protonix DVT prophylaxis: Heparin sc Code: Full code The patient's management plan was discussed with my attending physician MD Haseeb Sheridan MD, PGY2
[2024-04-11 16:00] VITALS: BP 140/80; PULSE 71; PULSE 77; RESP 20; TEMP 36.3; O2SAT 99
--- NOTE | 2024-04-11 18:50 | PD.IMPROG ---
Documentation for date of: 04/11/24 Subjective Subjective Interval history: Patient evaluated CTA head and neck is negative HIDA scan was not done today because of the other issues going on Upper endoscopy showed bile gastritis gastric due to disorder and esophagitis Biopsies are pending Exam Vital Signs Temp Pulse Resp BP Pulse Ox O2 Del Method O2 Flow Rate 97.4 F 71 20 140/80 H 99 Room Air 3 04/11/24 16:00 04/11/24 16:00 04/11/24 16:00 04/11/24 16:00 04/11/24 16:00 04/11/24 16:00 04/10/24 22:00 Constitutional Comments: Alert oriented Routine Respiratory Exam Comments: Normal to auscultation Routine Abdominal Exam Comments: Midepigastric tenderness Objective Labs 04/11/24 05:18 04/11/24 05:18 Labs: Laboratory Results - last 24 hr 04/11/24 05:18 WBC 8.3 RBC 4.90 Hgb 13.7 Hct 37.7 L MCV 77 L MCH 28.0 MCHC 36.3 RDW Std Deviation 31.8 L Plt Count 222 Neut % (Auto) 52 Lymph % (Auto) 36 [place] % (Auto) 9 Eos % (Auto) 3 Baso % (Auto) 1 Neut # (Auto) 4.3 Lymph # (Auto) 3.0 [place] # (Auto) 0.7 Eos # (Auto) 0.3 Baso # (Auto) 0.0 Immature Gran # (Auto) 0.02 H Absolute Nucleated RBC 0.00 Immature Gran % 0 Nucleated RBC % 0 Sodium 137 Potassium 3.3 L Chloride 100 Carbon Dioxide 26.6 Anion Gap 10 BUN 7 L Creatinine 0.8 Estim Creat Clear Calc 142.5 eGFR > 60 BUN/Creatinine Ratio 9 L Glucose [address] Glu mg/dL 103 Hemoglobin A1c 5.2 Calculated Osmolality 270 L Calcium 9.0 Corrected Calcium 9.0 Phosphorus 3.8 Magnesium 1.9 Total Bilirubin 1.6 H D AST 11 ALT 12 Alkaline Phosphatase 66 Total Protein 6.5 Albumin 4.1 D Globulin 2.4 Albumin/Globulin Ratio 1.7 Impressions Impression: # Gastritis biopsies pending # Gastric motility disorder # Distal esophagitis HIDA scan most likely Sunday Continue current management Assessment & Plan A&P Narrative Clinical picture of nausea vomiting abdominal pain after eating at a restaurant suggestive of infectious gastroenteritis Severity of the abdominal pain is somewhat perplexing with CT scan of the abdomen pelvis showing gastritis and nonspecific colitis Plan Agree with pain control and IV fluids Anemia most likely is dilutional although patient had specks of black material in the stool may have a low-grade GI bleed Consent obtained for fiberoptic esophagogastroduodenoscopy with possible biopsy possible therapeutic intervention under intravenous moderate sedation Clear liquid diet till 10 AM tomorrow morning then n.p.o. Thank you very much for the opportunity to participate in the care of this patient Time Spent With Patient Time: Total time spent is greater than 50% in coordination of care (as documented) at patient's floor/unit and/or counseling patient:
[2024-04-11 20:00] VITALS: BP 116/63; PULSE 77; PULSE 92; RESP 19; TEMP 36.7
[2024-04-11] MEDS: ATORVASTATIN CALCIUM 20 MG TABLET 80 MG PO (21:19)
[2024-04-11] MEDS: MG HYD/AL HYD/SIME (Maalox Reg) SUSP 30 ML UDC PO (21:48)
--- NOTE | 2024-04-11 23:43 | PD.NEUROPROG ---
Documentation for date of: 04/11/24 Subjective Subjective Interval history: Patient was seen in telemetry today at the bedside. Continues to complain of nausea vomiting and dizziness and intermittent is on the left side. Waiting for HIDA scan. Exam - Neurology Vital Signs Temp Pulse Resp BP Pulse Ox O2 Del Method O2 Flow Rate 98.1 F 92 19 116/63 99 Room Air 3 04/11/24 20:00 04/11/24 20:00 04/11/24 20:00 04/11/24 20:00 04/11/24 16:00 04/11/24 16:00 04/10/24 22:00 Narrative Exam GENERAL APPEARANCE: Well hydrated, well-nourished in no acute distress. HEENT: Normocephalic, atraumatic, extraocular movements intact. Pupils: Equal reacting to light and accommodation NECK: Supple, no JVD or bruits. CARDIOVASULAR: Heart: S1, S2 heard, regular without S3-S4 or murmur no rubs or gallops. LUNGS/CHEST: Clear to auscultation bilaterally. No rails, rhonchi, or wheezing. Normal inspection. ABDOMEN: Soft, nontender, with normal bowel sounds. No pulsatile masses. No rebound, rigidity, or guarding. Normal inspection and palpation. EXTREMITIES: Normal inspection and palpation. No edema, clubbing or cyanosis. SKIN: Warm and dry without rashes. Normal inspection. MUSCULOSKELETAL: No cervical, thoracic, lumbar or midline bony tenderness. Normal inspection. NEURO: Alert, awake and oriented x3. Cranial nerves: II through XII grossly intact. Speech and language: Normal with no dysarthria or dysphasia. Motor system: Tone and bulk: Normal: Strength: 5 out of 5 in all 4 extremities; No pronator drift noted. Deep tendon reflexes: 2+ bilaterally symmetrical. Plantar reflex: Downgoing bilaterally. Sensory system: Intact to all modalities of sensation bilaterally. Coordination: Intact to [id number] and [id number]-[id number] test bilaterally. No ataxia, no dysmetria, or dysdiadochokinesia noted. No intention tremors noted. Gait: Tested. No signs of meningeal irritation noted. PSYCHIATRIC: Normal mood and affect. Objective Labs 04/12/24 05:02 04/12/24 05:02 Labs: Laboratory Results - last 24 hr 04/11/24 05:18 WBC 8.3 RBC 4.90 Hgb 13.7 Hct 37.7 L MCV 77 L MCH 28.0 MCHC 36.3 RDW Std Deviation 31.8 L Plt Count 222 Neut % (Auto) 52 Lymph % (Auto) 36 [place] % (Auto) 9 Eos % (Auto) 3 Baso % (Auto) 1 Neut # (Auto) 4.3 Lymph # (Auto) 3.0 [place] # (Auto) 0.7 Eos # (Auto) 0.3 Baso # (Auto) 0.0 Immature Gran # (Auto) 0.02 H Absolute Nucleated RBC 0.00 Immature Gran % 0 Nucleated RBC % 0 Sodium 137 Potassium 3.3 L Chloride 100 Carbon Dioxide 26.6 Anion Gap 10 BUN 7 L Creatinine 0.8 Estim Creat Clear Calc 142.5 eGFR > 60 BUN/Creatinine Ratio 9 L Glucose [address] Glu mg/dL 103 Hemoglobin A1c 5.2 Calculated Osmolality 270 L Calcium 9.0 Corrected Calcium 9.0 Phosphorus 3.8 Magnesium 1.9 Total Bilirubin 1.6 H D AST 11 ALT 12 Alkaline Phosphatase 66 Total Protein 6.5 Albumin 4.1 D Globulin 2.4 Albumin/Globulin Ratio 1.7 Assessment & Plan Assessment and plan (1) Abdominal pain: Status: Acute Assessment and plan: Endocs: showed esophagitis and Gastritis FU with HIDA scan results. life style changes discussed. (2) Paresthesia: Status: Acute Assessment and plan: likely anxiety related. MRIbrain: negative
[2024-04-12] VITALS: BP 143/93; PULSE 73; PULSE 83; RESP 17; TEMP 36.7; O2SAT 97
[2024-04-12] MEDS: ONDANSETRON INJ 2 MG/ML INJ 2 ML 4 MG IV (00:42)
[2024-04-12] MEDS: DICYCLOMINE 10 MG CAPSULE PO (01:43)
[2024-04-12 04:00] VITALS: BP 114/65; PULSE 65; PULSE 74; RESP 18; TEMP 36.1; O2SAT 98
[2024-04-12] MEDS: HEPARIN SOD INJ 5000 UNIT/ML VIAL SC ×3 (05:25→21:02)
[2024-04-12 05:39] LABS: Basophils % (Auto) 0 % (0-2.5); Eosinophils # (Auto) 0.3 Thou/mm3 (0.0-0.5); Eosinophils % (Auto) 3 % (0-10); Hematocrit 37.8 % (41.0-53.0); Hemoglobin 13.8 g/dL (13.5-16.0); Immature Granulocytes % (Auto) 0 % (0-0); Immature Granulocytes Auto 0.03 Thou/mm3 (0.00-0.00); Lymphocytes # (Auto) 3.2 Thou/mm3 (1.0-4.8); Lymphocytes % (Auto) 36 % (10-50); Mean Corpuscular HGB Conc 36.5 g/dl (31.0-37.0); Mean Corpuscular Volume 77 fL (80-100); Monocytes # (Auto) 0.8 Thou/mm3 (0.0-0.8); Monocytes % (Auto) 8 % (0-12); Neutrophils # (Auto) 4.7 Thou/mm3 (1.8-7.7); Neutrophils % (Auto) 52 % (37-80); Nucleated Red Blood Cell % 0 /100 WBC (0); Platelet Count 192 Thou/mm3 (140-440); RDW Standard Deviation 31.7 fL (35.1-43.9); Red Blood Count 4.92 Miln/mm3 (4.50-5.90); White Blood Count 8.9 Thou/mm3 (3.8-10.6)
[2024-04-12 06:04] LABS: Alanine Aminotransferase 13 U/L (10-49); Albumin/Globulin Ratio 1.5 (1.2-2.2); Alkaline Phosphatase 66 U/L (46-116); Anion Gap 9 (7-16); Aspartate Amino Transferase 12 U/L (0-34); BUN/Creatinine Ratio 8 Ratio (12-20); Bilirubin,Total 1.8 mg/dL (0.3-1.2); Blood Urea Nitrogen 7 mg/dL (9-23); Carbon Dioxide 25.8 mMol/L (20.0-31.0); Chloride 100 mMol/L (98-107); Creatinine (Component) 0.9 mg/dL (0.6-1.3); Estimated Creatinine Clearance 126.7 mL/min (>60); Globulin 2.6 gm/dL (2.3-3.5); Glucose 88 mg/dL (74-106); Magnesium 1.8 mg/dL (1.6-2.6); Osmolality,Calculated 267 (275-295); Phosphorous 3.7 mg/dL (2.4-5.1); Potassium 3.7 mMol/L (3.4-5.1); Sodium 135 mMol/L (136-145); Total Protein 6.6 gm/dL (5.7-8.2); eGFR > 60 See Note
[2024-04-12] MEDS: PANTOPRAZOLE 40 MG TABLET PO (06:33)
[2024-04-12 08:00] VITALS: BP 145/94; PULSE 74; PULSE 75; RESP 12; TEMP 36.6; O2SAT 99
[2024-04-12] MEDS: Magnesium Sulfate 2 GM Ivpb 2 GM/50 ML BAG IV (08:04)
[2024-04-12] MEDS: HYOSCYAMINE SULF 0.125 MG TAB.SUBL 0.25 MG PO (08:56)
[2024-04-12] MEDS: PANTOPRAZOLE INJ 40 MG VIAL IVP ×2 (08:56→21:01)
[2024-04-12] MEDS: SUCRALFATE SUSP 1 GM/10 ML UDC PO ×4 (08:56→21:01)
--- NOTE | 2024-04-12 09:53 | ESPR_ITS ---
<Statement entered by Catrachito Nichole MD - 04/18/24 15:03> I reviewed above note and agree with findings and plans. I have also personally examined the patient with medicine team and went over assessment and plan with medical team including internet marketing director and resident physician. Documentation for date of: 04/12/24 Subjective Subjective Interval history: Overnight events: The patient had multiple episodes of abdominal pain, was given dicyclomine and Maalox with improvement in his pain. This morning, patient reported epigastric pain, was started on hyoscyamine 0.25 Mg every 6 hourly as needed sublingually for epigastric pain. He denied any headache, nausea or vomiting, lightheadedness, chest pain or SOB, but continues to have nausea and bilious vomitus. He denied any fever or chills, and his left-sided hemiparesis has been improved. Exam Vital Signs Temp Pulse Resp BP Pulse Ox O2 Del Method O2 Flow Rate 97.0 F 65 18 114/65 98 Room Air 3 04/12/24 04:00 04/12/24 04:00 04/12/24 04:00 04/12/24 04:00 04/12/24 04:00 04/11/24 16:00 04/10/24 22:00 Narrative Exam General: A/O x3, ill-appearing Eyes: PERRL, EOMI. Anicteric, vision grossly intact. Ears: No ear pain, no ear discharge, Hearing grossly intact. Nose: No nasal discharge. Mouth/Throat: Dry mucous membranes, no redness, no lesions. Neck: Neck supple, non-tender, no cervical lymphadenopathy. Lungs: Clear NANCY to auscultation and percussion, No accessory muscle use. Cardio: Normal S1/S2, regular rhythm, no murmurs, no JVD Abdomen: Soft, non-tender, no palpable masses, peristalsis present, no guarding or rebound. Extremities: Symmetrical, no significant deformities, no peripheral edema , non-tender, peripheral pulses presents. Skin: No rashes, no lesions, warm to touch. Neuro: Motor and sensation grossly normal Objective Labs 04/14/24 05:32 04/14/24 05:32 Labs: Laboratory Results - last 24 hr 04/12/24 05:02 WBC 8.9 RBC 4.92 Hgb 13.8 Hct 37.8 L MCV 77 L MCH 28.0 MCHC 36.5 RDW Std Deviation 31.7 L Plt Count 192 D Neut % (Auto) 52 Lymph % (Auto) 36 [place] % (Auto) 8 Eos % (Auto) 3 Baso % (Auto) 0 Neut # (Auto) 4.7 Lymph # (Auto) 3.2 [place] # (Auto) 0.8 Eos # (Auto) 0.3 Baso # (Auto) 0.0 Immature Gran # (Auto) 0.03 H Absolute Nucleated RBC 0.00 Immature Gran % 0 Nucleated RBC % 0 Sodium 135 L Potassium 3.7 Chloride 100 Carbon Dioxide 25.8 Anion Gap 9 BUN 7 L Creatinine 0.9 Estim Creat Clear Calc 126.7 eGFR > 60 BUN/Creatinine Ratio 8 L Glucose 88 Calculated Osmolality 267 L Calcium 9.0 Corrected Calcium 9.0 Phosphorus 3.7 Magnesium 1.8 Total Bilirubin 1.8 H AST 12 ALT 13 Alkaline Phosphatase 66 Total Protein 6.6 Albumin 4.0 Globulin 2.6 Albumin/Globulin Ratio 1.5 Quality Measures Quality Measures none Assessment & Plan Assessment Current Active Medications: Generic Name Dose Route Start Last Admin Trade Name Freq PRN Reason Stop Dose Admin Aspirin 300 mg 04/11/24 09:00 04/12/24 09:04 Aspirin 300 Mg Supp IA 05/11/24 08:59 Not Given QDAY GENEVIEVE Atorvastatin Calcium 80 mg 04/10/24 21:00 04/11/24 21:19 Atorvastatin Calcium 20 Mg Tablet PO 05/10/24 20:59 80 mg HS GENEVIEVE Administration Heparin Sodium (Porcine) 5,000 unit 04/10/24 14:00 04/12/24 05:25 Heparin Sod Inj 5000 Unit/Ml Vial SC 04/24/24 13:59 5,000 unit Q8HR GENEVIEVE Administration Hyoscyamine 0.25 mg 04/12/24 14:00 Hyoscyamine Sulf 0.125 Mg Tab.Subl PO 05/12/24 13:59 Q6H PRN Heartburn or Abdominal pain Sodium Chloride 1,000 mls @ 125 mls/hr 04/09/24 02:00 04/11/24 22:28 Ns IV 05/09/24 01:59 125 mls/hr .Q8H GENEVIEVE Administration Promethazine HCl 12.5 mg/ 50.5 mls @ 2.5 mls/min 04/10/24 23:37 Sodium Chloride IV 05/10/24 22:05 Q6HR PRN NAUSEA OR VOMITING Potassium Chloride 10 meq in 100 mls @ 100 mls/hr 04/12/24 07:28 Kcl Ivpb IV 04/12/24 10:27 Q1H GENEVIEVE Ondansetron HCl 4 mg 04/09/24 01:50 04/12/24 00:42 Ondansetron Inj 2 Mg/Ml Inj 2 Ml IV 05/09/24 01:49 4 mg Q6HR PRN Administration NAUSEA OR VOMITING Protocol Pantoprazole Sodium 40 mg 04/12/24 09:00 04/12/24 08:56 Pantoprazole Inj 40 Mg Vial IVP 05/12/24 08:59 40 mg BID GENEVIEVE Administration Sucralfate 1 gm 04/12/24 07:30 04/12/24 08:56 Sucralfate Susp 1 Gm/10 Ml Udc PO 05/12/24 07:29 1 gm QID GENEVIEVE Administration Plan 33-year-old male with no relevant past medical history was admitted to the hospital on 04/09/2024 due to intractable nausea and vomiting likely secondary to gastroenteritis. #Intractable nausea and vomiting #Hyperbilirubinemia Likely secondary to bile reflux gastropathy DDx: Marijuana abuse disorder ? Patient stated that he has had nausea and vomiting for the past 4 days prior to admission after he went to a restaurant and ate some garbanzo beans. ? DDx Food poisoning versus marijuana induced emesis in the setting of positive U tox for marijuana. - EGD was significant for a large amount of bile acid in the stomach Plan: ? Clear liquid diet ? Protonix - Started on capsaicin cream ? HIDA scan ordered, possibly will get on Sunday ? Will continue to monitor #TIA, ruled out #Left facial numbness, and #Left upper and lower extremity weakness and numbness 2/2 #Anxiety ?Patient today developed left lower and upper extremity weakness and numbness. As well as left facial numbness. ?DDx TIA versus reversible cerebral vasoconstriction secondary to marijuana use in the setting of dehydration ?NIHSS score 7 ?CTA head and neck negative ?CT head negative -MRI negative ?Teleneuro consulted and advised asprin 81 mg qday, has been started on equivalent dose of for rectal aspirin 300 Mg daily. Plan: -Neurologist Dr. Roche believes that his symptoms are likely secondary to his anxiety in the setting of acute illness secondary to gastroenteritis -Continue with hydration -Continue to monitor -Daily a.m. labs, electrolyte panels, CBC and CMP -Replete electrolytes as needed #Hypokalemia, improved Likely secondary to intractable nausea and vomiting Was found to have hypokalemic with potassium level 3.0, yesterday received 70 mEq of KCl IV, and this morning potassium level was 3.7 #Lower esophagitis #Gastritis Plan: -On Protonix -Clear liquid diet #Normocytic normochromic anemia, resolved Likely dilutional Disposition: Patient admitted to telemetry unit for further management of bile acid gastropathy Diet: Clear liquid diet GI prophylaxis: protonix DVT prophylaxis: Heparin sc Code: Full code The patient's management plan was discussed with my attending physician MD Haseeb Sheridan MD, PGY2
[2024-04-12 12:00] VITALS: BP 119/67; PULSE 72; PULSE 88; RESP 13; TEMP 36.7; O2SAT 99
[2024-04-12] MEDS: POTASSIUM CHLORIDE 20 mEq TABCR 40 MEQ PO (13:12)
[2024-04-12] MEDS: CAPSAICIN CR 60 GM TUBE TOP ×2 (13:27→21:02)
[2024-04-12 13:42] VITALS: BMI 24.9
--- NOTE | 2024-04-12 15:19 | ESPR_ITS ---
Documentation for date of: 04/12/24 Subjective Subjective Interval history: Evaluated the patient Still having some nausea vomiting Is sick of eating liquids HIDA scan for Sunday morning Low residue diet Increase promethazine Exam Vital Signs Temp Pulse Resp BP Pulse Ox O2 Del Method O2 Flow Rate 98.0 F 72 13 119/67 99 Room Air 3 04/12/24 12:00 04/12/24 12:00 04/12/24 12:00 04/12/24 12:00 04/12/24 12:00 04/12/24 12:00 04/10/24 22:00 Constitutional Comments: Alert oriented Routine Respiratory Exam Comments: Normal to auscultation Routine Abdominal Exam Comments: Soft nontender Objective Labs 04/12/24 05:02 04/12/24 05:02 Labs: Laboratory Results - last 24 hr 04/12/24 05:02 WBC 8.9 RBC 4.92 Hgb 13.8 Hct 37.8 L MCV 77 L MCH 28.0 MCHC 36.5 RDW Std Deviation 31.7 L Plt Count 192 D Neut % (Auto) 52 Lymph % (Auto) 36 [place] % (Auto) 8 Eos % (Auto) 3 Baso % (Auto) 0 Neut # (Auto) 4.7 Lymph # (Auto) 3.2 [place] # (Auto) 0.8 Eos # (Auto) 0.3 Baso # (Auto) 0.0 Immature Gran # (Auto) 0.03 H Absolute Nucleated RBC 0.00 Immature Gran % 0 Nucleated RBC % 0 Sodium 135 L Potassium 3.7 Chloride 100 Carbon Dioxide 25.8 Anion Gap 9 BUN 7 L Creatinine 0.9 Estim Creat Clear Calc 126.7 eGFR > 60 BUN/Creatinine Ratio 8 L Glucose 88 Calculated Osmolality 267 L Calcium 9.0 Corrected Calcium 9.0 Phosphorus 3.7 Magnesium 1.8 Total Bilirubin 1.8 H AST 12 ALT 13 Alkaline Phosphatase 66 Total Protein 6.6 Albumin 4.0 Globulin 2.6 Albumin/Globulin Ratio 1.5 Impressions Impression: # Pain abdomen # Nausea vomiting Plan Increase promethazine to 25 mg p.o. every 6 hours instead of IV Low residue diet Assessment & Plan A&P Narrative Clinical picture of nausea vomiting abdominal pain after eating at a restaurant suggestive of infectious gastroenteritis Severity of the abdominal pain is somewhat perplexing with CT scan of the abdomen pelvis showing gastritis and nonspecific colitis Plan Agree with pain control and IV fluids Anemia most likely is dilutional although patient had specks of black material in the stool may have a low-grade GI bleed Consent obtained for fiberoptic esophagogastroduodenoscopy with possible biopsy possible therapeutic intervention under intravenous moderate sedation Clear liquid diet till 10 AM tomorrow morning then n.p.o. Thank you very much for the opportunity to participate in the care of this patient Time Spent With Patient Time: Total time spent is greater than 50% in coordination of care (as documented) at patient's floor/unit and/or counseling patient:
[2024-04-12 16:00] VITALS: BP 116/74; PULSE 68; PULSE 80; RESP 13; TEMP 36.6; O2SAT 98
[2024-04-12] MEDS: PROMETHAZINE HCL 25 MG TABLET PO ×2 (17:34→23:53)
--- NOTE | 2024-04-12 17:41 | PC.NURSE ---
Patient would like to speak to Car (patient advocate/care) when next available.
[2024-04-12 20:00] VITALS: BP 118/69; PULSE 75; PULSE 82; RESP 15; TEMP 36.6; O2SAT 97
--- NOTE | 2024-04-12 23:21 | ESPR_ITS ---
Documentation for date of: 04/12/24 Subjective Subjective Interval history: Patient was seen in telemetry today at the bedside. Continues to complain of nausea vomiting and dizziness and intermittent is on the left side. Waiting for HIDA scan. Exam - Neurology Vital Signs Temp Pulse Resp BP Pulse Ox O2 Del Method O2 Flow Rate 97.8 F 82 15 118/69 97 Room Air 3 04/12/24 20:00 04/12/24 20:00 04/12/24 20:00 04/12/24 20:00 04/12/24 20:00 04/12/24 20:00 04/10/24 22:00 Narrative Exam GENERAL APPEARANCE: Well hydrated, well-nourished in no acute distress. HEENT: Normocephalic, atraumatic, extraocular movements intact. Pupils: Equal reacting to light and accommodation NECK: Supple, no JVD or bruits. CARDIOVASULAR: Heart: S1, S2 heard, regular without S3-S4 or murmur no rubs or gallops. LUNGS/CHEST: Clear to auscultation bilaterally. No rails, rhonchi, or wheezing. Normal inspection. ABDOMEN: Soft, nontender, with normal bowel sounds. No pulsatile masses. No rebound, rigidity, or guarding. Normal inspection and palpation. EXTREMITIES: Normal inspection and palpation. No edema, clubbing or cyanosis. SKIN: Warm and dry without rashes. Normal inspection. MUSCULOSKELETAL: No cervical, thoracic, lumbar or midline bony tenderness. Normal inspection. NEURO: Alert, awake and oriented x3. Cranial nerves: II through XII grossly intact. Speech and language: Normal with no dysarthria or dysphasia. Motor system: Tone and bulk: Normal: Strength: 5 out of 5 in all 4 extremities; No pronator drift noted. Deep tendon reflexes: 2+ bilaterally symmetrical. Plantar reflex: Downgoing bilaterally. Sensory system: Intact to all modalities of sensation bilaterally. Coordination: Intact to [id number]-[id number]-[id number] and [id number] test bilaterally. No ataxia, no dysmetria, or dysdiadochokinesia noted. No intention tremors noted. Gait: Tested. No signs of meningeal irritation noted. PSYCHIATRIC: Normal mood and affect. Objective Labs 04/13/24 05:16 04/13/24 05:16 Labs: Laboratory Results - last 24 hr 04/12/24 05:02 WBC 8.9 RBC 4.92 Hgb 13.8 Hct 37.8 L MCV 77 L MCH 28.0 MCHC 36.5 RDW Std Deviation 31.7 L Plt Count 192 D Neut % (Auto) 52 Lymph % (Auto) 36 [place] % (Auto) 8 Eos % (Auto) 3 Baso % (Auto) 0 Neut # (Auto) 4.7 Lymph # (Auto) 3.2 [place] # (Auto) 0.8 Eos # (Auto) 0.3 Baso # (Auto) 0.0 Immature Gran # (Auto) 0.03 H Absolute Nucleated RBC 0.00 Immature Gran % 0 Nucleated RBC % 0 Sodium 135 L Potassium 3.7 Chloride 100 Carbon Dioxide 25.8 Anion Gap 9 BUN 7 L Creatinine 0.9 Estim Creat Clear Calc 126.7 eGFR > 60 BUN/Creatinine Ratio 8 L Glucose 88 Calculated Osmolality 267 L Calcium 9.0 Corrected Calcium 9.0 Phosphorus 3.7 Magnesium 1.8 Total Bilirubin 1.8 H AST 12 ALT 13 Alkaline Phosphatase 66 Total Protein 6.6 Albumin 4.0 Globulin 2.6 Albumin/Globulin Ratio 1.5 Assessment & Plan Assessment and plan (1) Abdominal pain: Status: Acute Assessment and plan: Endocs: showed esophagitis and Gastritis FU with HIDA scan life style changes discussed. (2) Paresthesia: Status: Acute Assessment and plan: likely anxiety related. MRIbrain: negative
[2024-04-13] VITALS (7 sets, daily range): BP systolic 102–136; BP diastolic 60–93; PULSE 67–108; RESP 12–18; TEMP 36.2–36.5; O2SAT 96–99
[2024-04-13] MEDS: PROMETHAZINE HCL 25 MG TABLET PO ×4 (05:40→23:50)
[2024-04-13] MEDS: SUCRALFATE SUSP 1 GM/10 ML UDC PO ×4 (05:40→21:20)
[2024-04-13] MEDS: CAPSAICIN CR 60 GM TUBE TOP ×3 (05:40→21:20)
[2024-04-13] MEDS: HEPARIN SOD INJ 5000 UNIT/ML VIAL SC ×3 (05:40→21:20)
[2024-04-13 06:28] LABS: Basophils # (Auto) 0.1 Thou/mm3 (0.0-0.2); Basophils % (Auto) 1 % (0-2.5); Eosinophils # (Auto) 0.4 Thou/mm3 (0.0-0.5); Eosinophils % (Auto) 4 % (0-10); Hematocrit 40.7 % (41.0-53.0); Hemoglobin 14.7 g/dL (13.5-16.0); Immature Granulocytes % (Auto) 1 % (0-0); Immature Granulocytes Auto 0.05 Thou/mm3 (0.00-0.00); Lymphocytes # (Auto) 4.5 Thou/mm3 (1.0-4.8); Lymphocytes % (Auto) 45 % (10-50); Mean Corpuscular HGB Conc 36.1 g/dl (31.0-37.0); Mean Corpuscular Hemoglobin 27.7 pg (25.0-35.0); Mean Corpuscular Volume 77 fL (80-100); Monocytes # (Auto) 0.8 Thou/mm3 (0.0-0.8); Monocytes % (Auto) 8 % (0-12); Neutrophils # (Auto) 4.3 Thou/mm3 (1.8-7.7); Neutrophils % (Auto) 42 % (37-80); Nucleated Red Blood Cell % 0 /100 WBC (0); Platelet Count 265 Thou/mm3 (140-440); RDW Standard Deviation 33.2 fL (35.1-43.9); White Blood Count 10.1 Thou/mm3 (3.8-10.6)
[2024-04-13] MEDS: ONDANSETRON INJ 2 MG/ML INJ 2 ML 4 MG IV ×2 (06:39→12:46)
[2024-04-13] MEDS: HYOSCYAMINE SULF 0.125 MG TAB.SUBL 0.25 MG PO ×3 (06:39→23:51)
[2024-04-13 06:54] LABS: Alanine Aminotransferase 17 U/L (10-49); Albumin, Serum 4.5 gm/dL (3.5-5.0); Albumin/Globulin Ratio 1.7 (1.2-2.2); Alkaline Phosphatase 72 U/L (46-116); Anion Gap 9 (7-16); Aspartate Amino Transferase 15 U/L (0-34); BUN/Creatinine Ratio 10 Ratio (12-20); Bilirubin,Total 0.9 mg/dL (0.3-1.2); Blood Urea Nitrogen 10 mg/dL (9-23); Calcium 9.5 mg/dL (8.3-10.6); Calcium (Corrected) 9.5 mg/dL (8.5-10.1); Carbon Dioxide 28.5 mMol/L (20.0-31.0); Chloride 102 mMol/L (98-107); Estimated Creatinine Clearance 110.5 mL/min (>60); Globulin 2.6 gm/dL (2.3-3.5); Glucose 127 mg/dL (74-106); Magnesium 2.1 mg/dL (1.6-2.6); Osmolality,Calculated 278 (275-295); Phosphorous 4.2 mg/dL (2.4-5.1); Potassium 3.4 mMol/L (3.4-5.1); Sodium 139 mMol/L (136-145); Total Protein 7.1 gm/dL (5.7-8.2); eGFR > 60 See Note
[2024-04-13] MEDS: PANTOPRAZOLE INJ 40 MG VIAL IVP ×2 (08:02→21:20)
[2024-04-13] MEDS: DICYCLOMINE 10 MG CAPSULE PO (08:02)
--- NOTE | 2024-04-13 11:56 | PC.NURSE ---
Pt wants to leave AMA. Dr Park at bedside spoke to the patient regarding risks of leave. pt aware, refused to stay, refused monitor & IV. Wants to shower before leave, Dr Park aware okayed for pt to shower. Pt refused to sign AMA paper.
--- NOTE | 2024-04-13 12:02 | PC.NURSE ---
Pt changed his mind regarding staying, Dr Dorantes aware.
--- NOTE | 2024-04-13 12:12 | ESPR_ITS ---
<Statement entered by Catrachito Nichole MD - 04/18/24 15:07> I reviewed above note and agree with findings and plans. I have also personally examined the patient with medicine team and went over assessment and plan with medical team including business development intern and resident physician. Documentation for date of: 04/13/24 Subjective Subjective Interval history: Patient was examined bedside this morning, he was complaining of mild pain abdomen dicyclomine x1 was given. During morning round with attending Dr Nichole , we tried to explain him his differential his pain could be secondary to biliary dyskinesia, esophagitis, bile gastritis, cannabis hyperemesis syndrome is on our low diagnosis. He got angry and told us to get out of the room and he will see us in court , and that we are accusing him of using marijuana and that he has not used it since years. During admission on 04/09/24 U tox was positive for marijuana. Later I went to the room again with Dr. Mckeon PGY3 tried to explain him we are not accusing of any marijuana use but it is in our low differential diagnosis, and still HIDA scan is pending which is going to happen most likely tomorrow. All his symptoms could be secondary to anxiety and He sees some neurologist in [place]. In that conversation he wanted to leave AMA without signing paperwork, he tried to take his IV line out. His Family was present at bedside with him in whole conversation. Charge nurse and his nurse Анна was informed. Later he decided to stay. Plan :pending HIDA tomorrow . Exam Vital Signs Temp Pulse Resp BP Pulse Ox O2 Del Method O2 Flow Rate 97.1 F 71 16 136/93 H 98 Room Air 3 04/13/24 08:00 04/13/24 08:00 04/13/24 08:00 04/13/24 08:00 04/13/24 08:00 04/13/24 08:00 04/10/24 22:00 Narrative Exam GENERAL: Adult male ,agitated, angry HEENT: Normocephalic, atraumatic. Pupils are equal and reactive. Oral mucosa is moist. NECK: Supple, nontender, no JVD CHEST: Symmetrical, atraumatic and with equal expansion ,Nontender on palpation CARDIOVASCULAR: Heart regular rhythm & rate. S1/S2. no murmur or gallop rub or extra beats. LUNGS: Clear to auscultation bilaterally with symmetrical chest rise. No laboring tachypnea or wheezing. No intercostal subcostal retraction. No rales and no rhonchi. ABDOMEN: Soft, flat, nontender to palpation, no guarding or rebound tenderness. Active and normal bowel sounds. EXTREMITIES:Moves all 4 extremities,No B/L LE edema. SKIN: Warm and dry, no jaundice or rashes noted. NEURO: Patient is AO x 3, Cranial nerves II through XII grossly intact. There is no focal neurologic deficits noted. PSYCHIATRIC: Patient is in normal mood, cooperative, no SI or HI or hallucinations. Objective Labs 04/13/24 05:16 04/13/24 05:16 Labs: Laboratory Results - last 24 hr 04/13/24 05:16 WBC 10.1 RBC 5.30 Hgb 14.7 Hct 40.7 L MCV 77 L MCH 27.7 MCHC 36.1 RDW Std Deviation 33.2 L Plt Count 265 D Neut % (Auto) 42 Lymph % (Auto) 45 [place] % (Auto) 8 Eos % (Auto) 4 Baso % (Auto) 1 Neut # (Auto) 4.3 Lymph # (Auto) 4.5 [place] # (Auto) 0.8 Eos # (Auto) 0.4 Baso # (Auto) 0.1 Immature Gran # (Auto) 0.05 H Absolute Nucleated RBC 0.00 Immature Gran % 1 H Nucleated RBC % 0 Sodium 139 Potassium 3.4 Chloride 102 Carbon Dioxide 28.5 Anion Gap 9 BUN 10 Creatinine 1.0 Estim Creat Clear Calc 110.5 eGFR > 60 BUN/Creatinine Ratio 10 L Glucose 127 H Calculated Osmolality 278 Calcium 9.5 Corrected Calcium 9.5 Phosphorus 4.2 Magnesium 2.1 Total Bilirubin 0.9 D AST 15 ALT 17 Alkaline Phosphatase 72 Total Protein 7.1 Albumin 4.5 D Globulin 2.6 Albumin/Globulin Ratio 1.7 Quality Measures Quality Measures none Assessment & Plan Assessment Current Active Medications: Generic Name Dose Route Start Last Admin Trade Name Freq PRN Reason Stop Dose Admin Capsaicin 0 gm 04/12/24 12:30 04/13/24 05:40 Capsaicin Cr 60 Gm Tube TOP 05/12/24 12:29 1 1000units TID GENEVIEVE Administration Heparin Sodium (Porcine) 5,000 unit 04/10/24 14:00 04/13/24 05:40 Heparin Sod Inj 5000 Unit/Ml Vial SC 04/24/24 13:59 5,000 unit Q8HR GENEVIEVE Administration Hyoscyamine 0.25 mg 04/12/24 14:00 04/13/24 06:39 Hyoscyamine Sulf 0.125 Mg Tab.Subl PO 05/12/24 13:59 0.25 mg Q6H PRN Administration Heartburn or Abdominal pain Sodium Chloride 1,000 mls @ 125 mls/hr 04/09/24 02:00 04/11/24 22:28 Ns IV 05/09/24 01:59 125 mls/hr .Q8H GENEVIEVE Administration Ondansetron HCl 4 mg 04/09/24 01:50 04/13/24 06:39 Ondansetron Inj 2 Mg/Ml Inj 2 Ml IV 05/09/24 01:49 4 mg Q6HR PRN Administration NAUSEA OR VOMITING Protocol Pantoprazole Sodium 40 mg 04/12/24 09:00 04/13/24 08:02 Pantoprazole Inj 40 Mg Vial IVP 05/12/24 08:59 40 mg BID GENEVIEVE Administration Promethazine HCl 25 mg 04/12/24 18:00 04/13/24 05:40 Promethazine Hcl 25 Mg Tablet PO 05/12/24 17:59 25 mg Q6HR GENEVIEVE Administration Sucralfate 1 gm 04/12/24 07:30 04/13/24 05:40 Sucralfate Susp 1 Gm/10 Ml Udc PO 05/12/24 07:29 1 gm QID GENEVIEVE Administration Plan 33-year-old male with no relevant past medical history was admitted to the hospital on 04/09/2024 due to intractable nausea and vomiting likely secondary to gastroenteritis. #Intractable nausea and vomiting #Hyperbilirubinemia- improving Likely secondary to bile reflux gastropathy , less likely Marijuana abuse disorder ? Patient stated that he has had nausea and vomiting for the past 4 days prior to admission after he went to a restaurant and ate some garbanzo beans. ? DDx Food poisoning versus marijuana induced emesis in the setting of positive U tox for marijuana. - EGD was significant for a large amount of bile acid in the stomach ? Clear liquid diet continue ? Protonix 40 bid - Continue on capsaicin cream -Continue promethazine 25 mg po Q6hr ? HIDA scan ordered, NPO after midnight ? Will continue to monitor #Lower esophagitis #Gastritis - EGD was significant for a large amount of bile acid in the stomach -On Protonix 40 BID -Clear liquid diet #TIA, ruled out #Left facial numbness, and #Left upper and lower extremity weakness and numbness 2/2- resolved #Anxiety ?Patient developed left lower and upper extremity weakness and numbness. As well as left facial numbness. ?DDx TIA versus reversible cerebral vasoconstriction secondary to marijuana use in the setting of dehydration ?NIHSS score 7 at the time of presentation ?CTA head and neck negative ?CT head negative -MRI negative ?Teleneuro consulted and advised asprin 81 mg qday, will continue -Neurologist Dr. Roche believes that his symptoms are likely secondary to his anxiety in the setting of acute illness secondary to gastroenteritis -Continue with hydration -Continue to monitor -Daily a.m. labs, electrolyte panels, CBC and CMP -Replete electrolytes as needed #Hypokalemia, Resolved Likely secondary to intractable nausea and vomiting Was found to have hypokalemic with potassium level 3.0, Replete As needed #Normocytic normochromic anemia, resolved Likely dilutional Disposition: Patient admitted to telemetry unit for further management of bile acid gastropathy,HIDA tomorrow Diet: Clear liquid diet,NPO after midnight GI prophylaxis: protonix DVT prophylaxis: Heparin sc Code: Full code Discussed the patient with my attending Dr Nichole, Dre Dorantes MD,PGY-3
--- NOTE | 2024-04-13 12:14 | PD.IMPROG ---
Documentation for date of: 04/13/24 Subjective Subjective Interval history: Some improvement CCK HIDA scan with ejection fraction tomorrow morning Exam Vital Signs Temp Pulse Resp BP Pulse Ox O2 Del Method O2 Flow Rate 97.1 F 71 16 136/93 H 98 Room Air 3 04/13/24 08:00 04/13/24 08:00 04/13/24 08:00 04/13/24 08:00 04/13/24 08:00 04/13/24 08:00 04/10/24 22:00 Objective Labs 04/13/24 05:16 04/13/24 05:16 Labs: Laboratory Results - last 24 hr 04/13/24 05:16 WBC 10.1 RBC 5.30 Hgb 14.7 Hct 40.7 L MCV 77 L MCH 27.7 MCHC 36.1 RDW Std Deviation 33.2 L Plt Count 265 D Neut % (Auto) 42 Lymph % (Auto) 45 [place] % (Auto) 8 Eos % (Auto) 4 Baso % (Auto) 1 Neut # (Auto) 4.3 Lymph # (Auto) 4.5 [place] # (Auto) 0.8 Eos # (Auto) 0.4 Baso # (Auto) 0.1 Immature Gran # (Auto) 0.05 H Absolute Nucleated RBC 0.00 Immature Gran % 1 H Nucleated RBC % 0 Sodium 139 Potassium 3.4 Chloride 102 Carbon Dioxide 28.5 Anion Gap 9 BUN 10 Creatinine 1.0 Estim Creat Clear Calc 110.5 eGFR > 60 BUN/Creatinine Ratio 10 L Glucose 127 H Calculated Osmolality 278 Calcium 9.5 Corrected Calcium 9.5 Phosphorus 4.2 Magnesium 2.1 Total Bilirubin 0.9 D AST 15 ALT 17 Alkaline Phosphatase 72 Total Protein 7.1 Albumin 4.5 D Globulin 2.6 Albumin/Globulin Ratio 1.7 Impressions Impression: # Nausea vomiting # Pain abdomen CCK HIDA scan with ejection fraction of the gallbladder tomorrow Assessment & Plan A&P Narrative Clinical picture of nausea vomiting abdominal pain after eating at a restaurant suggestive of infectious gastroenteritis Severity of the abdominal pain is somewhat perplexing with CT scan of the abdomen pelvis showing gastritis and nonspecific colitis Plan Agree with pain control and IV fluids Anemia most likely is dilutional although patient had specks of black material in the stool may have a low-grade GI bleed Consent obtained for fiberoptic esophagogastroduodenoscopy with possible biopsy possible therapeutic intervention under intravenous moderate sedation Clear liquid diet till 10 AM tomorrow morning then n.p.o. Thank you very much for the opportunity to participate in the care of this patient Time Spent With Patient Time: Total time spent is greater than 50% in coordination of care (as documented) at patient's floor/unit and/or counseling patient:
[2024-04-13] MEDS: RINGERS LACTATED 1000 ML 1,000 ML 125 ML IV (14:14)
--- NOTE | 2024-04-13 23:37 | PD.VPROG1 ---
Telemedicine visit statement This visit was conducted with the use of interactive audio and video telecommunications system that permits real time communication between the patient and the provider. Patient's verbal consent for virtual visit was obtained on 04/13/24 at 2337. Documentation for date of: 04/13/24 Subjective Subjective Interval history: Patient is in telemetry, continues to have nausea and vomiting, not eating much. Going to be NPO from midnight for HIDA scan tomorrow. No more paresthesias reported. Virtual exam Vital Signs Temp Pulse Resp BP Pulse Ox O2 Del Method O2 Flow Rate 97.1 F 108 H 14 121/81 96 Room Air 3 04/13/24 19:54 04/13/24 19:54 04/13/24 19:54 04/13/24 19:54 04/13/24 19:54 04/13/24 19:54 04/10/24 22:00 Objective Labs 04/13/24 05:16 04/13/24 05:16 Labs: Laboratory Results - last 24 hr 04/13/24 05:16 WBC 10.1 RBC 5.30 Hgb 14.7 Hct 40.7 L MCV 77 L MCH 27.7 MCHC 36.1 RDW Std Deviation 33.2 L Plt Count 265 D Neut % (Auto) 42 Lymph % (Auto) 45 [place] % (Auto) 8 Eos % (Auto) 4 Baso % (Auto) 1 Neut # (Auto) 4.3 Lymph # (Auto) 4.5 [place] # (Auto) 0.8 Eos # (Auto) 0.4 Baso # (Auto) 0.1 Immature Gran # (Auto) 0.05 H Absolute Nucleated RBC 0.00 Immature Gran % 1 H Nucleated RBC % 0 Sodium 139 Potassium 3.4 Chloride 102 Carbon Dioxide 28.5 Anion Gap 9 BUN 10 Creatinine 1.0 Estim Creat Clear Calc 110.5 eGFR > 60 BUN/Creatinine Ratio 10 L Glucose 127 H Calculated Osmolality 278 Calcium 9.5 Corrected Calcium 9.5 Phosphorus 4.2 Magnesium 2.1 Total Bilirubin 0.9 D AST 15 ALT 17 Alkaline Phosphatase 72 Total Protein 7.1 Albumin 4.5 D Globulin 2.6 Albumin/Globulin Ratio 1.7 Assessment & Plan Assessment 1) Abdominal pain: Status: Acute Assessment and plan: Endocs: showed esophagitis and Gastritis FU with HIDA scan life style changes discussed. (2) Paresthesia: Status: Acute Assessment and plan: likely anxiety related. MRIbrain: negative
[2024-04-14] VITALS (7 sets, daily range): BP systolic 96–131; BP diastolic 61–70; PULSE 65–100; RESP 15–18; TEMP 36.1–36.7; O2SAT 96–99
[2024-04-14] MEDS: HEPARIN SOD INJ 5000 UNIT/ML VIAL SC ×3 (05:17→21:41)
[2024-04-14 06:02] LABS: Basophils % (Auto) 0 % (0-2.5); Eosinophils # (Auto) 0.3 Thou/mm3 (0.0-0.5); Eosinophils % (Auto) 3 % (0-10); Hematocrit 41.4 % (41.0-53.0); Hemoglobin 14.8 g/dL (13.5-16.0); Immature Granulocytes % (Auto) 0 % (0-0); Immature Granulocytes Auto 0.03 Thou/mm3 (0.00-0.00); Lymphocytes # (Auto) 3.7 Thou/mm3 (1.0-4.8); Lymphocytes % (Auto) 41 % (10-50); Mean Corpuscular HGB Conc 35.7 g/dl (31.0-37.0); Mean Corpuscular Hemoglobin 27.9 pg (25.0-35.0); Mean Corpuscular Volume 78 fL (80-100); Monocytes # (Auto) 0.8 Thou/mm3 (0.0-0.8); Monocytes % (Auto) 9 % (0-12); Neutrophils # (Auto) 4.2 Thou/mm3 (1.8-7.7); Neutrophils % (Auto) 47 % (37-80); Nucleated Red Blood Cell % 0 /100 WBC (0); Platelet Count 263 Thou/mm3 (140-440); RDW Standard Deviation 33.8 fL (35.1-43.9); Red Blood Count 5.31 Miln/mm3 (4.50-5.90)
[2024-04-14 06:30] LABS: Alanine Aminotransferase 29 U/L (10-49); Albumin, Serum 4.4 gm/dL (3.5-5.0); Albumin/Globulin Ratio 1.6 (1.2-2.2); Alkaline Phosphatase 68 U/L (46-116); Anion Gap 11 (7-16); Aspartate Amino Transferase 28 U/L (0-34); BUN/Creatinine Ratio 8 Ratio (12-20); Bilirubin,Total 1.1 mg/dL (0.3-1.2); Blood Urea Nitrogen 8 mg/dL (9-23); Carbon Dioxide 27.1 mMol/L (20.0-31.0); Chloride 101 mMol/L (98-107); Estimated Creatinine Clearance 110.5 mL/min (>60); Globulin 2.8 gm/dL (2.3-3.5); Glucose 106 mg/dL (74-106); Magnesium 1.8 mg/dL (1.6-2.6); Osmolality,Calculated 275 (275-295); Phosphorous 5.1 mg/dL (2.4-5.1); Potassium 3.6 mMol/L (3.4-5.1); Sodium 139 mMol/L (136-145); Total Protein 7.2 gm/dL (5.7-8.2); eGFR > 60 See Note
--- NOTE | 2024-04-14 08:50 | PC.SS ---
Follow up note: Patient scheduled for hida scan today. D/c plan remains to return home. Patient to follow up with p/c to [facility] to apply for coverage for this month. Patient is a true self pay. SS already provided [facility] information.
[2024-04-14] MEDS: PANTOPRAZOLE INJ 40 MG VIAL IVP ×2 (10:06→21:41)
--- NOTE | 2024-04-14 11:50 | ESPR_ITS ---
Documentation for date of: 04/14/24 Subjective Subjective Interval history: This morning, patient reported doing little better, He denied any abdominal pain, headache, nausea or vomiting, lightheadedness, chest pain or SOB. Exam Vital Signs Temp Pulse Resp BP Pulse Ox O2 Del Method O2 Flow Rate 97.2 F 100 15 122/70 96 Room Air 3 04/14/24 19:38 04/14/24 20:00 04/14/24 19:38 04/14/24 19:38 04/14/24 19:38 04/14/24 12:00 04/10/24 22:00 Narrative Exam General: A/O x3, ill-appearing Eyes: PERRL, EOMI. Anicteric, vision grossly intact. Ears: No ear pain, no ear discharge, Hearing grossly intact. Nose: No nasal discharge. Mouth/Throat: Dry mucous membranes, no redness, no lesions. Neck: Neck supple, non-tender, no cervical lymphadenopathy. Lungs: Clear NANCY to auscultation and percussion, No accessory muscle use. Cardio: Normal S1/S2, regular rhythm, no murmurs, no JVD Abdomen: Soft, non-tender, no palpable masses, peristalsis present, no guarding or rebound. Extremities: Symmetrical, no significant deformities, no peripheral edema , non-tender, peripheral pulses presents. Skin: No rashes, no lesions, warm to touch. Neuro: Motor and sensation grossly normal Objective Labs 04/14/24 05:32 04/14/24 05:32 Labs: Laboratory Results - last 24 hr 04/14/24 05:32 WBC 9.0 RBC 5.31 Hgb 14.8 Hct 41.4 MCV 78 L MCH 27.9 MCHC 35.7 RDW Std Deviation 33.8 L Plt Count 263 Neut % (Auto) 47 Lymph % (Auto) 41 [place] % (Auto) 9 Eos % (Auto) 3 Baso % (Auto) 0 Neut # (Auto) 4.2 Lymph # (Auto) 3.7 [place] # (Auto) 0.8 Eos # (Auto) 0.3 Baso # (Auto) 0.0 Immature Gran # (Auto) 0.03 H Absolute Nucleated RBC 0.00 Immature Gran % 0 Nucleated RBC % 0 Sodium 139 Potassium 3.6 Chloride 101 Carbon Dioxide 27.1 Anion Gap 11 BUN 8 L Creatinine 1.0 Estim Creat Clear Calc 110.5 eGFR > 60 BUN/Creatinine Ratio 8 L Glucose 106 Calculated Osmolality 275 Calcium 10.0 Corrected Calcium 10.0 Phosphorus 5.1 Magnesium 1.8 Total Bilirubin 1.1 AST 28 ALT 29 Alkaline Phosphatase 68 Total Protein 7.2 Albumin 4.4 Globulin 2.8 Albumin/Globulin Ratio 1.6 Quality Measures Quality Measures none Assessment & Plan Assessment Current Active Medications: Generic Name Dose Route Start Last Admin Trade Name Freq PRN Reason Stop Dose Admin Heparin Sodium (Porcine) 5,000 unit 04/10/24 14:00 04/14/24 21:41 Heparin Sod Inj 5000 Unit/Ml Vial SC 04/24/24 13:59 5,000 unit Q8HR GENEVIEVE Administration Hyoscyamine 0.25 mg 04/12/24 14:00 04/13/24 23:51 Hyoscyamine Sulf 0.125 Mg Tab.Subl PO 05/12/24 13:59 0.25 mg Q6H PRN Administration Heartburn or Abdominal pain Sodium Chloride 1,000 mls @ 125 mls/hr 04/09/24 02:00 04/11/24 22:28 Ns IV 05/09/24 01:59 125 mls/hr .Q8H GENEVIEVE Administration Ondansetron HCl 4 mg 04/09/24 01:50 04/13/24 12:46 Ondansetron Inj 2 Mg/Ml Inj 2 Ml IV 05/09/24 01:49 4 mg Q6HR PRN Administration NAUSEA OR VOMITING Protocol Pantoprazole Sodium 40 mg 04/12/24 09:00 04/14/24 21:41 Pantoprazole Inj 40 Mg Vial IVP 05/12/24 08:59 40 mg BID GENEVIEVE Administration Promethazine HCl 25 mg 04/12/24 18:00 04/14/24 23:29 Promethazine Hcl 25 Mg Tablet PO 05/12/24 17:59 25 mg Q6HR GENEVIEVE Administration Sucralfate 1 gm 04/12/24 07:30 04/14/24 21:40 Sucralfate Susp 1 Gm/10 Ml Udc PO 05/12/24 07:29 1 gm QID GENEVIEVE Administration Plan 33-year-old male with no relevant past medical history was admitted to the hospital on 04/09/2024 due to intractable nausea and vomiting likely secondary to gastroenteritis. #Intractable nausea and vomiting, resolved #Hyperbilirubinemia Likely secondary to bile reflux gastropathy ? Patient stated that he has had nausea and vomiting for the past 4 days prior to admission after he went to a restaurant and ate some garbanzo beans. ? DDx Food poisoning versus marijuana induced emesis in the setting of positive U tox for marijuana. - EGD was significant for a large amount of bile acid in the stomach Plan: ? Clear liquid diet, later regular diet ? Protonix ? HIDA scan ordered, revealed GBEF 56% #TIA, ruled out #Left facial numbness, resolve #Left upper and lower extremity weakness and numbness, resolved #Anxiety ?Patient today developed left lower and upper extremity weakness and numbness. As well as left facial numbness. ?DDx TIA versus reversible cerebral vasoconstriction secondary to marijuana use in the setting of dehydration ?NIHSS score 7 ?CTA head and neck negative ?CT head negative -MRI negative Plan: -Neurologist Dr. Roche believes that his symptoms are likely secondary to his anxiety in the setting of acute illness secondary to gastroenteritis -Continue with hydration -Continue to monitor -Daily a.m. labs, electrolyte panels, CBC and CMP -Replete electrolytes as needed #Hypokalemia, improved Likely secondary to intractable nausea and vomiting Was found to have hypokalemic with potassium level 3.0 #Lower esophagitis #Gastritis Plan: -On Protonix BID -Clear liquid diet, and later advanced to regular diet #Normocytic normochromic anemia, resolved Likely dilutional Disposition: Patient admitted to telemetry unit for further management of bile acid gastropathy Diet: Regular GI prophylaxis: protonix DVT prophylaxis: Heparin sc Code: Full code The patient's management plan was discussed with my attending physician MD Haseeb Sheridan MD, PGY2
--- NOTE | 2024-04-14 17:03 | PD.IMPROG ---
Documentation for date of: 04/14/24 Subjective Subjective Interval history: Patient evaluated CCK HIDA scan with ejection fraction shows It to be at 56% Exam Vital Signs Temp Pulse Resp BP Pulse Ox O2 Del Method O2 Flow Rate 98.0 F 88 16 105/67 98 Room Air 3 04/14/24 12:00 04/14/24 12:00 04/14/24 12:00 04/14/24 12:00 04/14/24 12:00 04/14/24 12:00 04/10/24 22:00 Constitutional Comments: Alert oriented Routine Respiratory Exam Comments: Normal to auscultation Routine Abdominal Exam Comments: Midepigastric tenderness Objective Labs 04/14/24 05:32 04/14/24 05:32 Labs: Laboratory Results - last 24 hr 04/14/24 05:32 WBC 9.0 RBC 5.31 Hgb 14.8 Hct 41.4 MCV 78 L MCH 27.9 MCHC 35.7 RDW Std Deviation 33.8 L Plt Count 263 Neut % (Auto) 47 Lymph % (Auto) 41 [place] % (Auto) 9 Eos % (Auto) 3 Baso % (Auto) 0 Neut # (Auto) 4.2 Lymph # (Auto) 3.7 [place] # (Auto) 0.8 Eos # (Auto) 0.3 Baso # (Auto) 0.0 Immature Gran # (Auto) 0.03 H Absolute Nucleated RBC 0.00 Immature Gran % 0 Nucleated RBC % 0 Sodium 139 Potassium 3.6 Chloride 101 Carbon Dioxide 27.1 Anion Gap 11 BUN 8 L Creatinine 1.0 Estim Creat Clear Calc 110.5 eGFR > 60 BUN/Creatinine Ratio 8 L Glucose 106 Calculated Osmolality 275 Calcium 10.0 Corrected Calcium 10.0 Phosphorus 5.1 Magnesium 1.8 Total Bilirubin 1.1 AST 28 ALT 29 Alkaline Phosphatase 68 Total Protein 7.2 Albumin 4.4 Globulin 2.8 Albumin/Globulin Ratio 1.6 Impressions Impression: # No evidence of biliary dyskinesia # Nausea vomiting Assessment & Plan A&P Narrative Clinical picture of nausea vomiting abdominal pain after eating at a restaurant suggestive of infectious gastroenteritis Severity of the abdominal pain is somewhat perplexing with CT scan of the abdomen pelvis showing gastritis and nonspecific colitis Plan Agree with pain control and IV fluids Anemia most likely is dilutional although patient had specks of black material in the stool may have a low-grade GI bleed Consent obtained for fiberoptic esophagogastroduodenoscopy with possible biopsy possible therapeutic intervention under intravenous moderate sedation Clear liquid diet till 10 AM tomorrow morning then n.p.o. Thank you very much for the opportunity to participate in the care of this patient Time Spent With Patient Time: Total time spent is greater than 50% in coordination of care (as documented) at patient's floor/unit and/or counseling patient:
[2024-04-14] MEDS: SUCRALFATE SUSP 1 GM/10 ML UDC PO ×2 (18:12→21:40)
[2024-04-14] MEDS: PROMETHAZINE HCL 25 MG TABLET PO ×2 (18:12→23:29)
--- NOTE | 2024-04-14 22:27 | PD.NEUROPROG ---
Documentation for date of: 04/14/24 Subjective Subjective Interval history: Patient was seen in telemetry today at the bedside. Continues to complain of nausea vomiting and has not been eating anything for days. Waiting for HIDA scan. Exam - Neurology Vital Signs Temp Pulse Resp BP Pulse Ox O2 Del Method O2 Flow Rate 97.2 F 100 15 122/70 96 Room Air 3 04/14/24 19:38 04/14/24 20:00 04/14/24 19:38 04/14/24 19:38 04/14/24 19:38 04/14/24 12:00 04/10/24 22:00 Narrative Exam GENERAL APPEARANCE: Well hydrated, well-nourished in no acute distress. HEENT: Normocephalic, atraumatic, extraocular movements intact. Pupils: Equal reacting to light and accommodation NECK: Supple, no JVD or bruits. CARDIOVASULAR: Heart: S1, S2 heard, regular without S3-S4 or murmur no rubs or gallops. LUNGS/CHEST: Clear to auscultation bilaterally. No rails, rhonchi, or wheezing. Normal inspection. ABDOMEN: Soft, nontender, with normal bowel sounds. No pulsatile masses. No rebound, rigidity, or guarding. Normal inspection and palpation. EXTREMITIES: Normal inspection and palpation. No edema, clubbing or cyanosis. SKIN: Warm and dry without rashes. Normal inspection. MUSCULOSKELETAL: No cervical, thoracic, lumbar or midline bony tenderness. Normal inspection. NEURO: Alert, awake and oriented x3. Cranial nerves: II through XII grossly intact. Speech and language: Normal with no dysarthria or dysphasia. Motor system: Tone and bulk: Normal: Strength: 5 out of 5 in all 4 extremities; No pronator drift noted. Deep tendon reflexes: 2+ bilaterally symmetrical. Plantar reflex: Downgoing bilaterally. Sensory system: Intact to all modalities of sensation bilaterally. Coordination: Intact to [id number] and [id number] test bilaterally. No ataxia, no dysmetria, or dysdiadochokinesia noted. No intention tremors noted. Gait: Tested. No signs of meningeal irritation noted. PSYCHIATRIC: Normal mood and affect. Objective Labs 04/14/24 05:32 04/14/24 05:32 Labs: Laboratory Results - last 24 hr 04/14/24 05:32 WBC 9.0 RBC 5.31 Hgb 14.8 Hct 41.4 MCV 78 L MCH 27.9 MCHC 35.7 RDW Std Deviation 33.8 L Plt Count 263 Neut % (Auto) 47 Lymph % (Auto) 41 [place] % (Auto) 9 Eos % (Auto) 3 Baso % (Auto) 0 Neut # (Auto) 4.2 Lymph # (Auto) 3.7 [place] # (Auto) 0.8 Eos # (Auto) 0.3 Baso # (Auto) 0.0 Immature Gran # (Auto) 0.03 H Absolute Nucleated RBC 0.00 Immature Gran % 0 Nucleated RBC % 0 Sodium 139 Potassium 3.6 Chloride 101 Carbon Dioxide 27.1 Anion Gap 11 BUN 8 L Creatinine 1.0 Estim Creat Clear Calc 110.5 eGFR > 60 BUN/Creatinine Ratio 8 L Glucose 106 Calculated Osmolality 275 Calcium 10.0 Corrected Calcium 10.0 Phosphorus 5.1 Magnesium 1.8 Total Bilirubin 1.1 AST 28 ALT 29 Alkaline Phosphatase 68 Total Protein 7.2 Albumin 4.4 Globulin 2.8 Albumin/Globulin Ratio 1.6 Assessment & Plan Assessment and plan (1) Abdominal pain: Status: Acute Assessment and plan: Endoscopy: showed esophagitis and Gastritis FU with HIDA scan life style changes discussed. (2) Paresthesia: Status: Acute Assessment and plan: likely anxiety related. MRIbrain: negative
--- NOTE | 2024-04-14 23:05 | PC.NURSE ---
Pt transferred to room 371 via wheelchair.
[2024-04-15] VITALS: BP 111/72; PULSE 82; PULSE 85; RESP 21; TEMP 36.6; O2SAT 99
[2024-04-15] MEDS: SODIUM CHLORIDE 0.9% 1000 ML 1,000 ML 125 ML IV ×2 (01:29→09:39)
[2024-04-15] MEDS: ONDANSETRON INJ 2 MG/ML INJ 2 ML 4 MG IV (01:32)
[2024-04-15] MEDS: HYOSCYAMINE SULF 0.125 MG TAB.SUBL 0.25 MG PO ×2 (02:46→09:43)
[2024-04-15] MEDS: MG HYD/AL HYD/SIME (Maalox Reg) SUSP 30 ML UDC 15 ML PO (03:35)
[2024-04-15 04:00] VITALS: BP 124/83; PULSE 95; PULSE 99; RESP 16; TEMP 36.4; O2SAT 99
[2024-04-15] MEDS: HEPARIN SOD INJ 5000 UNIT/ML VIAL SC (06:08)
[2024-04-15 06:19] LABS: Basophils # (Auto) 0.1 Thou/mm3 (0.0-0.2); Basophils % (Auto) 0 % (0-2.5); Eosinophils # (Auto) 0.1 Thou/mm3 (0.0-0.5); Eosinophils % (Auto) 1 % (0-10); Hematocrit 41.9 % (41.0-53.0); Hemoglobin 15.2 g/dL (13.5-16.0); Immature Granulocytes % (Auto) 0 % (0-0); Immature Granulocytes Auto 0.04 Thou/mm3 (0.00-0.00); Lymphocytes # (Auto) 2.1 Thou/mm3 (1.0-4.8); Lymphocytes % (Auto) 18 % (10-50); Mean Corpuscular HGB Conc 36.3 g/dl (31.0-37.0); Mean Corpuscular Hemoglobin 27.9 pg (25.0-35.0); Mean Corpuscular Volume 77 fL (80-100); Monocytes # (Auto) 0.6 Thou/mm3 (0.0-0.8); Monocytes % (Auto) 5 % (0-12); Neutrophils # (Auto) 9.1 Thou/mm3 (1.8-7.7); Neutrophils % (Auto) 76 % (37-80); Nucleated Red Blood Cell % 0 /100 WBC (0); Platelet Count 277 Thou/mm3 (140-440); RDW Standard Deviation 32.6 fL (35.1-43.9); Red Blood Count 5.44 Miln/mm3 (4.50-5.90); White Blood Count 11.9 Thou/mm3 (3.8-10.6)
[2024-04-15 06:50] LABS: Alanine Aminotransferase 49 U/L (10-49); Albumin, Serum 4.8 gm/dL (3.5-5.0); Albumin/Globulin Ratio 1.7 (1.2-2.2); Alkaline Phosphatase 74 U/L (46-116); Anion Gap 12 (7-16); Aspartate Amino Transferase 36 U/L (0-34); BUN/Creatinine Ratio 10 Ratio (12-20); Bilirubin,Total 1.2 mg/dL (0.3-1.2); Blood Urea Nitrogen 10 mg/dL (9-23); Calcium 9.9 mg/dL (8.3-10.6); Calcium (Corrected) 9.9 mg/dL (8.5-10.1); Carbon Dioxide 23.7 mMol/L (20.0-31.0); Chloride 101 mMol/L (98-107); Estimated Creatinine Clearance 110.5 mL/min (>60); Globulin 2.9 gm/dL (2.3-3.5); Glucose 111 mg/dL (74-106); Osmolality,Calculated 273 (275-295); Potassium 3.4 mMol/L (3.4-5.1); Sodium 137 mMol/L (136-145); Total Protein 7.7 gm/dL (5.7-8.2); eGFR > 60 See Note
[2024-04-15 08:00] VITALS: BP 152/119; PULSE 86; RESP 20; TEMP 36.3; O2SAT 99
[2024-04-15] MEDS: PANTOPRAZOLE INJ 40 MG VIAL IVP (09:39)
--- NOTE | 2024-04-15 11:12 | PC.SS ---
Follow up note: Patient to d/c home today
--- NOTE | 2024-04-15 11:28 | ESDS_ITS ---
Planned Discharge Date 04/15/24 DS: Providers Provider Date of admission: 04/09/24 02:49 Primary care physician: Physician No Primary/Family Admitting Provider: Agus Hernandez MD Attending Provider on Admission: Catrachito Nichole MD Consults: 04/09/24 01:50 Consult to Gastroenterology Routine Comment: Consulting Provider: Vince Mclean 04/10/24 09:21 Consult to Neurology / Tele-Neurology Stat Comment: Consulting Provider: Corby Roche 04/10/24 10:18 Referral Physical Therapy Routine Comment: Physician Instructions: Referral Speech Therapy Stat Comment: Attending Provider on DC: Haseeb Villarreal MD Discharging Provider: Haseeb Villarreal MD DS: Diagnosis Problem List Completed Was Problem List Reviewed/Reconciled?: Yes Hospital Course Hospital Course Hospital course: The patient is a 33-year-old male with no significant past medical history who presented with abdominal pain and vomiting was admitted to hospital for acute viral gastroenteritis. He was found to have bile acid reflux gastritis and esophagitis on EGD, and also underwent HIDA scan for gallbladder, and gallbladder ejection fraction was 56%. During hospitalization, he also devel oped left-sided hemiaplasia and hemiparesis, underwent CT head, CTA head and neck including MRI stroke protocol, and all of them were negative for any stroke. He was managed supportively, and his symptoms has been better. He is discharged home with following recommendations:- Please follow-up with your PCP within 1 week of discharge. Follow-up with GI Dr. Mclean in 2 weeks for biopsy results -Recommended to stay hydrated You have been started on: Pantoprazole 40 Mg twice daily for 28 days Sucralfate 5 mL 4 times daily Ondansetron 4mg up to 3 times daily for nausea or vomiting Hyoscyamine sublingual 0.125 Mg tablets every 6 hourly as needed for abdominal pain -Recommended to return back to emergency department if your symptoms persist or does not improve. Problems: #Intractable nausea and vomiting, resolved #Hyperbilirubinemia #Bile reflux gastropathy #TIA, ruled out #Left facial numbness, resolve #Left upper and lower extremity weakness and numbness, resolved #Anxiety #Hypokalemia, improved #Lower esophagitis #Gastritis #Normocytic normochromic anemia, resolved The patient's management plan was discussed with my attending physician MD Haseeb Madrid MD, PGY2 Time Spent with Patient Time attestation: Total time spent providing and/or coordinating discharge services: Greater than 35 minutes Exam Vital Signs Temp Pulse Resp BP Pulse Ox O2 Del Method O2 Flow Rate 97.4 F 86 20 152/119 H 99 Room Air 3 04/15/24 08:00 04/15/24 08:00 04/15/24 08:00 04/15/24 08:00 04/15/24 08:00 04/15/24 08:00 04/15/24 08:00 Narrative Exam General: No acute distress, Alert and Oriented x 3 HEENT: Moist mucous membranes, oropharynx clear Neck: Supple, No masses, No JVD CVS: S1S2 Regular rate and rhythm, No murmurs, rubs or gallops Lungs: Clear to auscultation with no accessory use, no wheeze no rhonchi Abd: Soft, NT/ND, +BS, no organomegaly Ext: No edema, warm and well perfused Skin: No rash Psych: Appropriate mood and affect Discharge Plan Plan Patient Disposition: HOME (Self Care) Patient condition on transfer: Stable Care Plan Goals: Please follow-up with your PCP within 1 week of discharge. Follow-up with GI Dr. Mclean in 2 weeks for biopsy results -Recommended to stay hydrated You have been started on: Pantoprazole 40 Mg twice daily for 28 days Sucralfate 5 mL 4 times daily Ondansetron 4mg up to 3 times daily for nausea or vomiting Hyoscyamine sublingual 0.125 Mg tablets every 6 hourly as needed for abdominal pain -Recommended to return back to emergency department if your symptoms persist or does not improve. Prescriptions/Referrals Prescriptions/Med Rec: New ondansetron 4 mg tablet,disintegrating 4 mg PO Q8H PRN (Reason: nausea and vomiting) Qty: 30 0RF pantoprazole [Protonix] 40 mg tablet,delayed release (DR/EC) 40 mg PO BID 28 Days Qty: 56 0RF sucralfate 100 mg/mL suspension 5 ml PO QID Qty: 400 0RF Rx Instructions: swish in mouth and swallow; use after food/drink hyoscyamine sulfate 0.125 mg tablet, sublingual 0.125 mg PO QID PRN (Reason: dyspepsia or abdominal pain) Qty: 10 0RF Referrals: Vince Mclean MD [Physician] - No Primary/Family,Physician [Primary Care Provider] - Patient/Caregiver Discharge Instructions Discharge Activity: activity as tolerated Education Materials: Foodborne Illness (Food Poisoning) Print Language: Divehi Stand Alone Forms: Jennifer Award Info., Patient Portal Info Letter Discharge Order Discharge Orders: Discharge (Routine); Ordered 04/15/24 Ordered By: Haseeb Villarreal Quality Discharge Quality Measures VTE prophylaxis
== END 2024-04-15 12:00 | disposition home or self-care (01) | DRG 249 ==
LOC: SERX 23:17 → SERHOLD 04-09 03:19 → S3NX 04-09 12:21 → S2NX 04-10 12:58 → S3SX 04-14 23:06
PROVIDERS: Nurse Practitioner Primary Care; Specialist; Student in an Organized Health Care Education/Training Program; Admitting Provider Internal Medicine; Emergency Provider Emergency Medicine; Visit Provider Internal Medicine
PROC: 0DB58ZX Excision of Esophagus, Via Natural or Artificial Opening Endoscopic, Diagnostic (ICD-10-PCS; CPT 43239; principal; 2024-04-10 21:30)
DX: A08.4 Viral intestinal infection, unspecified (principal); D64.9 Anemia, unspecified; K21.00 Gastro-esophageal reflux disease with esophagitis, without bleeding; K31.9 Disease of stomach and duodenum, unspecified; F41.9 Anxiety disorder, unspecified; E87.6 Hypokalemia; R17 Unspecified jaundice
CPT/HCPCS: 36415; 70450; 70496; 70498; 70544; 71045; 71260; 74177; 76705; 78227; 80048; 80053; 80061; 80307; 81001; 82270; 82550; 83036; 83605; 83690; 83735; 84100; 84145; 84484; 85025; 85610; 85730; 92610; 93005; 93225; 93306; 94762; 96361; 96372; 96374; 96375; 99285; A4649; A9537; J1200; J1643; J1885; J2250; J2270; J2405; J2470; J2765; J2805; J3010; J3475; J3480; J3490; J7030; J7120; Q0162; Q9967; A9270

== ENCOUNTER 2024-09-05 05:12 | Emergency (ER) | payer MEDICAID, SELFPAY ==
[2024-09-05 05:13] VITALS: BMI 26.4
[2024-09-05 05:25] VITALS: BP 129/85; PULSE 84; RESP 16; TEMP 36.6; O2SAT 97
--- NOTE | 2024-09-05 05:27 | EDNOTE_ITS ---
ED GI Bleed RME/HPI General Chief complaint: GI Bleed Stated complaint: VOMITING BLOOD, COFFEE GROUND AND BLOOD CLOTS Time Seen by Provider: 09/05/24 05:28 Arrival date/time: 09/05/24 05:12 RME / HPI RME / HPI Narrative: Dr. Cummings?s Main ED Evaluation: 33yo male with a history of stomach ulcer presents to the ED for a chief complaint of hematemesis. Patient states he's had coffee-ground emesis for the last 2 weeks, reporting he was seen at [facility] at that time and was prescribed Omeprazole and Sucralfate. Patient states tonight he started vomiting blood clots and was concerned, so he came in for further evaluation. Patient reports associated epigastric pain. Patient denies any fever, chills, UTI symptoms, black stools or any other associated symptoms. NKA. Related Data Previous Rx's ?Medication ?Instructions ?Recorded ondansetron 4 mg disintegrating 4 mg PO Q8H PRN nausea and 04/08/24 tablet vomiting #30 tabs sucralfate 100 mg/mL oral 5 ml PO QID #400 mL 04/14/24 suspension hyoscyamine sulfate 0.125 mg 0.125 mg PO QID PRN dyspe psia or 04/15/24 sublingual tablet abdominal pain #10 tabs Allergies Allergy/AdvReac Type Severity Reaction Status Date / Time No Known Allergies Allergy Verified 09/05/24 05:13 Review of Systems Review of Systems Systems Reviewed: All systems reviewed, normal except as documented Past Medical History Past Medical History NEUROLOGIC: Negative Neurological Disorders or Seizures CARDIAC: Negative Cardiac Disorders or Congestive Heart Failure RESPIRATORY: Negative Chronic Obstructive Pulmonary Disease (COPD) or Asthma GASTROINTESTINAL: Negative Gastrointestinal Disorders GENITOURINARY: Negative Genitourinary Disorders or Renal Disease MUSCULOSKELETAL: Negative Musculoskeletal Disorders ENDOCRINE: Negative Endocrine Disorders, Diabetes Mellitus Type 1 or Diabetes Mellitus Type 2 HEMATOLOGIC: Negative Blood Disorders or Sickle Cell Disease OTHER HISTORY: Negative Falls, Blood Transfusions, Blood Transfusion Reaction or Anesthesia Reactions Social History SMOKING STATUS: Never smoker SUBSTANCE USE: does not use ED Exam Narrative Physical exam: GENERAL APPEARANCE: alert and oriented x 4, well-developed, well-nourished, no acute distress VITALS: All vitals were reviewed and the pulse ox is 97% on room air, which is normal according to my interpretation. HEENT: Normocephalic, atraumatic; pupils equal, round, reactive to light; EOMI; mucous membranes pink, moist; oropharynx clear NECK: Supple LUNGS: CTABL; no wheezes, no rales, no rhonchi HEART: Regular rate, regular rhythm; normal S1, S2; no murmurs ABDOMEN: non distended; soft, epigastric tenderness, no guarding, no rebound EXTREMITIES: atraumatic; no edema NEUROLOGIC: awake; alert and oriented x4; cranial nerves II-XII grossly intact; no focal sensory or motor deficits PSYCHIATRIC: appropriate mood and affect SKIN: warm, dry, normal color; no rashes Course Quality Measures none Orders Category Date Time Status Auto Body Customizer NOW Care 09/05/24 05:27 Active IV [Insert IV] STAT Care 09/05/24 05:34 Active CBC Stat Lab 09/05/24 05:27 Ordered Comprehensive Metabolic Panel Stat Lab 09/05/24 05:27 Ordered Lipase Stat Lab 09/05/24 05:27 Ordered Magnesium Stat Lab 09/05/24 05:27 Ordered Partial Thromboplastin Time Stat Lab 09/05/24 05:27 Ordered Prothrombin Time with INR Stat Lab 09/05/24 05:27 Ordered Troponin I Stat Lab 09/05/24 05:27 Ordered Morphine Inj Med 09/05/24 05:27 Discontinued 5 mg IVP X1 ONE Ondansetron Inj [Zofran Inj] Med 09/05/24 05:27 Discontinued 4 mg IVP X1 ONE Pantoprazole/Ns 80Mg IV Premix [Protonix/NS 80mg IV Med 09/05/24 05:30 Active Premix] 80 mg in 100 ml IV Q10H Pantoprazole/Ns 80Mg IV Premix [Protonix/NS 80mg IV Med 09/05/24 15:30 Pending Premix] 80 mg in 100 ml IV Q10H Pantoprazole/Ns 80Mg IV Premix [Protonix/NS 80mg IV Med 09/05/24 05:27 Active Premix] 80 mg in 100 ml IV X1 Sodium Chloride 0.9% 1000 ml [Ns] 1,000 ml Med 09/05/24 05:27 Active IV 999 mls/hr Vital Signs Vital signs: Vital Signs Temperature 98 F 09/05/24 05:25 Pulse Rate 84 09/05/24 05:25 Respiratory Rate 16 09/05/24 05:25 Blood Pressure 129/85 H 09/05/24 05:25 Pulse Oximetry (%) 97 09/05/24 05:25 Oxygen Delivery Method Room Air 09/05/24 05:25 GI Bleed MDM Narrative MDM Narrative:: Scribe Attestation: 09/05/24 - Gloria Myers am scribing for and in the presence of Dr. Cummings. Patient data External records reviewed:: [facility] previous records (Per chart review, patient was admitted here on 04/08/24 for abdominal pain.) Clinical information provided by:: patient Social determinants that could affect healthcare access:: none Patient has the following chronic illnesses:: none How is presenting disease/condition affected by chronic disease/condition?: no chronic disease Evaluation data The following diagnostics were reviewed and interpreted by me:: lab results Lab and/or radiology exams considered but not ordered:: none Interpretation Summary: Labs pending at the time of admission. Medications / Prescriptions Medications or Prescriptions considered but not ordered:: none Medication administrations:: Medication Administration History Pantoprazole Sodium (Protonix/Ns 80mg Iv Premix) 80 mg in 100 mls @ 10 mls/hr IV Q10H [facility] Stop: 09/08/24 03:29 Pantoprazole Sodium (Protonix/Ns 80mg Iv Premix) 80 mg in 100 mls @ 400 mls/hr IV X1 ONE Stop: 09/05/24 05:41 Sodium Chloride (Ns) 1,000 mls @ 999 mls/hr IV .Q1H1M ONE Stop: 09/05/24 06:27 Pantoprazole Sodium (Protonix/Ns 80mg Iv Premix) 80 mg in 100 mls @ 10 mls/hr IV Q10H [facility] Stop: 09/05/24 15:29 Discontinued Medications Morphine Sulfate (Morphine Sulf Inj 10 Mg/Ml Vial) 5 mg IVP X1 ONE Stop: 09/05/24 05:28 Ondansetron HCl (Ondansetron Inj 2 Mg/Ml Inj 2 Ml) 4 mg IVP X1 ONE Stop: 09/05/24 05:28 see above Consultations Consultation(s) initiated? (list below): Yes Consultation #1 (Physician, Specialty, Details): Discussed case with the resident physician, attending Dr. Rojas from Hospitalist service regarding admission. Discussed patients ED course, exam findings, labs, and radiology results. The Hospitalist agrees to accept the patient for admission. Time: 05:29 Diagnosis GI bleed differential diagnosis: Upper gastrointestinal hemorrhage and other (gastritis, ulcer) Most likely diagnosis given after review of the tests above:: see clinical impression below Admission Indicated Admission indicated?: indicated Admission Request Was there a request for admission?: Yes Admission Attestation Admission request attestation: Discussed case with [] from Hospitalist service regarding admission. Discussed patients ED course, exam findings, labs, and radiology results. The Hospitalist [agrees,declines] to accept the patient for admission. Disposition Plan Disposition Plan: Admit Discharge Plan Plan Patient Disposition: Admit Acute Care w/in Hospital Prescriptions/Referrals Prescriptions/Med Rec: No Action ondansetron 4 mg tablet,disintegrating 4 mg PO Q8H PRN (Reason: nausea and vomiting) Qty: 30 0RF sucralfate 100 mg/mL suspension 5 ml PO QID Qty: 400 0RF Rx Instructions: swish in mouth and swallow; use after food/drink hyoscyamine sulfate 0.125 mg tablet, sublingual 0.125 mg PO QID PRN (Reason: dyspepsia or abdominal pain) Qty: 10 0RF Problem List Clinical Impression: Upper GI bleed Patient/Caregiver Discharge Instructions Print Language: Kazakh Stand Alone Forms: Jennifer Award Info., Patient Portal Info Letter
[2024-09-05 05:32] VITALS: BP 119/82; PULSE 79; RESP 16; TEMP 36.6; O2SAT 97
[2024-09-05 05:34] VITALS: PULSE 71
[2024-09-05] MEDS: MORPHINE SULF INJ 10 MG/ML VIAL 5 MG IVP (05:39)
[2024-09-05] MEDS: ONDANSETRON INJ 2 MG/ML INJ 2 ML 4 MG IVP (05:39)
[2024-09-05] MEDS: PANTOPRAZOLE/NS 80MG IV PREMIX 80 MG/100 ML BAG 400 MG IV (05:39)
[2024-09-05] MEDS: PANTOPRAZOLE/NS 80MG IV PREMIX 80 MG/100 ML BAG 10 MG IV (05:40)
[2024-09-05] MEDS: SODIUM CHLORIDE 0.9% 1000 ML 1,000 ML 999 ML IV (05:40)
--- NOTE | 2024-09-05 05:44 | EVENTNT_ITS ---
Documentation for date of: 09/05/24 Event Note Event Note: 33-year-old male with history of ulcers who presented to the ED due to coffee- ground emesis was called by the ER. Patient had no initial labs recommended to order at least a CBC prior to admission. If results unavailable will pass along to day team. Case discussed with my attending Dr. Crystal Dhillon MD PGY-1
[2024-09-05 06:00] LABS: Basophils # (Auto) 0.1 Thou/mm3 (0.0-0.2); Basophils % (Auto) 1 % (0-2.5); Eosinophils # (Auto) 0.2 Thou/mm3 (0.0-0.5); Eosinophils % (Auto) 2 % (0-10); Hemoglobin 16.3 g/dL (13.5-16.0); Immature Granulocytes % (Auto) 0 % (0-0); Immature Granulocytes Auto 0.02 Thou/mm3 (0.00-0.00); Lymphocytes # (Auto) 2.7 Thou/mm3 (1.0-4.8); Lymphocytes % (Auto) 31 % (10-50); Mean Corpuscular HGB Conc 36.2 g/dl (31.0-37.0); Mean Corpuscular Hemoglobin 28.1 pg (25.0-35.0); Mean Corpuscular Volume 78 fL (80-100); Monocytes # (Auto) 0.8 Thou/mm3 (0.0-0.8); Monocytes % (Auto) 9 % (0-12); Neutrophils # (Auto) 4.9 Thou/mm3 (1.8-7.7); Neutrophils % (Auto) 56 % (37-80); Nucleated Red Blood Cell % 0 /100 WBC (0); Platelet Count 295 Thou/mm3 (140-440); RDW Standard Deviation 32.7 fL (35.1-43.9); Red Blood Count 5.81 Miln/mm3 (4.50-5.90); White Blood Count 8.7 Thou/mm3 (3.8-10.6)
[2024-09-05 06:09] LABS: INR 1.1 (0.9-1.3); Partial Thromboplastin Time 25.6 Seconds (22.0-36.0); Prothrombin Time 12.4 Seconds (9.0-12.2)
[2024-09-05 06:32] LABS: Alanine Aminotransferase 20 U/L (10-49); Albumin, Serum 4.9 gm/dL (3.5-5.0); Albumin/Globulin Ratio 1.8 (1.2-2.2); Alkaline Phosphatase 76 U/L (46-116); Anion Gap 15 (7-16); Aspartate Amino Transferase 21 U/L (0-34); BUN/Creatinine Ratio 8 Ratio (12-20); Bilirubin,Total 1.9 mg/dL (0.3-1.2); Blood Urea Nitrogen 9 mg/dL (9-23); Calcium 9.9 mg/dL (8.3-10.6); Calcium (Corrected) 9.9 mg/dL (8.5-10.1); Carbon Dioxide 27.4 mMol/L (20.0-31.0); Chloride 97 mMol/L (98-107); Creatinine (Component) 1.1 mg/dL (0.6-1.3); Estimated Creatinine Clearance 103.6 mL/min (>60); Globulin 2.8 gm/dL (2.3-3.5); Glucose 94 mg/dL (74-106); Lipase 33 U/L (12-53); Magnesium 1.9 mg/dL (1.6-2.6); Osmolality,Calculated 276 (275-295); Potassium 3.7 mMol/L (3.4-5.1); Sodium 139 mMol/L (136-145); Total Protein 7.7 gm/dL (5.7-8.2); Troponin I < 0.002 ng/mL (0.0-0.045); eGFR > 60 See Note
[2024-09-05 08:00] VITALS: BP 124/76; PULSE 67; RESP 17; TEMP 36.4; O2SAT 98
--- NOTE | 2024-09-05 08:05 | ESCONSULT_ITS ---
HPI Data of Consult Primary Care Provider: Slim Dhillon MD Consult Narrative History of present illness: 33 y/o male with no significant medical history came in to ED for hematemesis with associated symptoms of intermittent abdominal pain. Per patient, symptoms started x3 weeks ago he went to his PCP x2 days ago and was prescribed omeprazole and sucralfate. Patient was admitted at [facility] for similar symptoms on 04/09/24, he underwent EGD and gallbladder HIDA scan which indicated: bile acid reflux gastritis and esophagitis with gallbladder EF of 56%. Pathology report from that visit were benign. Today in ED, vitals were unremarkable, CBC indicated HgB 16.3. Physical exam was significant for epigastric pain on palpation. GI Dr. Mclean was called and case was reviewed with him. Patient did not meet criteria for admission, recc was made to omemprazole and follow up with his PCP in outpatient setting. This patient care was discussed with my attending Dr. Mary Costa MD PGY-2 Disclaimer: Minor errors in warp picker may be present since this note was dictated by speech recognition software. cc:: cc: Exam Vital Signs Temp Pulse Resp BP Pulse Ox O2 Del Method 97.6 F 67 17 124/76 98 Room Air 09/05/24 08:00 09/05/24 08:00 09/05/24 08:00 09/05/24 08:00 09/05/24 08:00 09/05/24 08:00 Results Labs 09/05/24 05:38 09/05/24 05:38 Labs: Short CBC 09/05/24 Range/Units 05:38 WBC 8.7 (3.8-10.6) Thou/mm3 Hgb 16.3 H (13.5-16.0) g/dL Hct 45.0 (41.0-53.0) % Plt Count 295 (140-440) Thou/mm3 BMP 09/05/24 05:38 Sodium 139 Potassium 3.7 Chloride 97 L Carbon Dioxide 27.4 BUN 9 Creatinine 1.1 Glucose 94 Calcium 9.9 Cardiac Enzymes 09/05/24 Range/Units 05:38 Troponin I < 0.002 (0.0-0.045) ng/mL Liver Function 09/05/24 Range/Units 05:38 Total Bilirubin 1.9 H (0.3-1.2) mg/dL AST 21 (0-34) U/L ALT 20 (10-49) U/L Alkaline Phosphatase 76 (46-116) U/L Albumin 4.9 (3.5-5.0) gm/dL Quality Measures Quality Measures none Medications Home Medications and Allergies Allergies Allergy/AdvReac Type Severity Reaction Status Date / Time No Known Allergies Allergy Verified 09/05/24 05:13 Visit Medications Pantoprazole Sodium (Protonix/Ns 80mg Iv Premix) 80 mg in 100 mls @ 10 mls/hr IV Q10H [facility] Stop: 09/08/24 03:29 Pantoprazole Sodium (Protonix/Ns 80mg Iv Premix) 80 mg in 100 mls @ 10 mls/hr IV Q10H [facility] Stop: 09/05/24 15:29 Last Admin: 09/05/24 05:40 Dose: 10 mls/hr Discontinued Medications Pantoprazole Sodium (Protonix/Ns 80mg Iv Premix) 80 mg in 100 mls @ 400 mls/hr IV X1 ONE Stop: 09/05/24 05:41 Last Infusion: 09/05/24 05:55 Dose: Infused Sodium Chloride (Ns) 1,000 mls @ 999 mls/hr IV .Q1H1M ONE Stop: 09/05/24 06:27 Last Infusion: 09/05/24 06:56 Dose: Infused Morphine Sulfate (Morphine Sulf Inj 10 Mg/Ml Vial) 5 mg IVP X1 ONE Stop: 09/05/24 05:28 Last Admin: 09/05/24 05:39 Dose: 5 mg Ondansetron HCl (Ondansetron Inj 2 Mg/Ml Inj 2 Ml) 4 mg IVP X1 ONE Stop: 09/05/24 05:28 Last Admin: 09/05/24 05:39 Dose: 4 mg Assessment & Plan Attending Provider Attestation/Addendum I reviewed the chart, went over patient's lab results and findings. Discussed the case with the residents and agree with the findings and plans of care as documented above. Had a discussion with gastroenterology, discussed about his symptoms, current Finding, agreed that patient does not need inpatient care. Discussed with the ED regarding discharging patient on oral PPI. Roney Hernandez MD
--- NOTE | 2024-09-05 08:07 | PD.EDADDENDU ---
Emergency Room Addendum Addendum Narrative: Patient was presented to Dr. Mclean - [employer] - by the resident, determined no need for admission, as the patient had a recent EGD and his Hb is stable. I was asked to DC the patient with Omeprazole. I had no active role in the care of this patient otherwise.
--- NOTE | 2024-09-05 08:48 | PC.NURSE ---
pt concerned that he has not eaten in 2 days and has been bleeding. pt wanting to have endoscopy done. informed pt that the doctors spoke with dr mata and he stated that he did not need admission at this time. pt requesting to ask dr benavides to do the procedure. will have dr cobb speak with pt.
--- NOTE | 2024-09-05 08:51 | PC.NURSE ---
DR HARO AT BEDSIDE TO MARTA WITH PT
== END 2024-09-05 08:58 | disposition home or self-care (01) ==
PROVIDERS: Emergency Medicine; Emergency Provider Emergency Medicine; PCP Family Medicine
DX: K92.0 Hematemesis (principal)
CPT/HCPCS: 36415; 80053; 80307; 83690; 83735; 84484; 85025; 85610; 85730; 87811; 96361; 96365; 96375; 99284; J2270; J2405; J3490; J7030